=== PATIENT | female | born 1975 | race Hispanic/Latino ===

== ENCOUNTER 2025-03-16 21:21 | Emergency (ER) | payer OTHER ==
--- OUTSIDE RECORDS SUMMARY | 2025-03-16 21:28 | XMS REPORT | Continuity of Care Document ---
Author Name Unknown Address [address] [place] [address] [facility] Address [address] [place] [address] Care Team Providers Care Community Engagement Coordinator Name Role Phone Pcp, Patient Does Not Have A Primary Care Physic ronald DEEDEE MORIN Attending Clinician Unavailable BESS CARRASCO Attending Clinician Unavailable ARLYN CRAWFORD Attending Clinician Unavailab LESVIA Sibley Attending Clinician Unavaila ble LAB90 Attending Clinician Unavailable KRUPA CONNELL Attending Clinician Unavailable LESVIA MORALES Attending Clinician UnavailMATTHEW Wei Attending Clinician Unavailable MD TOÑO Attending Clinician Unavailab KURT Ochoa Attending Clinician Unavaila SRIDHAR Nance Attending Clinician Unavailable Campaigns, Generic Provider Attending Clinician Unavailable TAMMIE CABRALES Attending Clinician Sandra BRIANA Girard Attending Clinician Unavailable BRIANA HENRY Attending Clinician Unavailable MAC, EKG- Attending Clinician Unavailable ERVIN COOK Attending Clinician Unavailable ALBA CAMPBELL Attending Clinician Unavailable JACE JUSTICE Attending Clinician Unavail able AMBER TREVINO Attending Clinician Unavailable Amber Trevino MD Attending Clinician [phone] Kimberly Diaz RN Attending Clinician [phone] Antonella Delgado Attending Clinician [phone] Teodoro Lincoln MD Attending Clinician [phone] Nacho Benavides Attending Clinician [phone] Jonathan BANKS, Lauren Lynch Attending Clinician UnavailJORGE Rivas Attending Clinician Unavailable DAVON [place] M.D. Attending Clinic ronald Unavailable BRIANA HENRY Admitting Clinician Unavailable AMBER TREVINO Admitting Clinician Unavailable Teodoro Lincoln MD Admitting Clinician [phone] Payers Payer Name Policy Type Policy Number Effective Date Expirati on Date Source MEDICAID ALIEN PENDING PENDING 2020 00:00:00 [place]IL[place] 5 [facility] 94 [id number] 2024 00:00:00 COMMERCIAL NON-CONTRACT GENERIC [id number] 2014 00:00:00 [facility] [id number] 2017 00:00:00 Problems Condition Name Condition Details Condition Category Status Onset Date Resolution Date Last Treatment Date Treating Clinician Comments Source Immunodefi ciency due to poorly controlled type 2 diabetes (CMS/HCC) (multi HCC) Immunodefi ciency due to poorly controlled type 2 diabetes (CMS/HCC) (multi HCC) Disease Active 02-14 00:00: 00 Isa galeano DM type 2 with diabetic mixed hyperlipid emia (multi HCC) DM type 2 with diabetic mixed hyperlipid emia (multi HCC) Disease Active 03-19 00:00: 00 Isa galeano Obesity Obesity Disease Active 03-19 00:00: 00 Isa Seybold - Externa l History of uterine cancer History of uterine cancer Disease Active 03-19 00:00: 00 Isa Burgerlidya Harveyeugene galeano Family history of rheumatoid arthritis Family history of rheumatoid arthritis Disease Active 03-19 00:00: 00 Isa Maricruz Harveya l Arthralgia of both hands Arthralgia of both hands Disease Active 03-19 00:00: 00 Isa Maricruz Harvey[place] Diabetic polyneurop athy associated with type 2 diabetes mellitus (multi HCC) Diabetic polyneurop athy associated with type 2 diabetes mellitus (multi HCC) Disease Active 03-19 00:00: 00 Isa Maricruz Harvey[place] COVID-19 COVID-19 Disease Active 2019-11 0 00:00: 00 [facility] Pneumonia due to COVID-19 virus Pneumonia due to COVID-19 virus Disease Active 2019-11 00:00: 00 [facility] C54.1 - MALIGNANT NEOPLASM OF ENDOMETR C54.1 - MALIGNANT NEOPLASM OF ENDOMETR Active 06/09/2018 BRENNAN Aragon Diagnosis Active 06-09 00:01: 00 2018-07-12 15:22:00 Bud Hernandez Obesity (BMI 30-39.9) Obesity (BMI 30-39.9) Disease Active 01-11 00:00: 00 [facility] Abnormal uterine bleeding Abnormal uterine bleeding Disease Active 01-11 00:00: 00 [facility] DM type 2 (diabetes mellitus, type 2) DM type 2 (diabetes mellitus, type 2) Disease Active 01-11 00:00: 00 [facility] Endometria l hyperplasi a without atypia, complex Endometria l hyperplasi a without atypia, complex Disease Active 01-11 00:00: 00 [facility] Chronic pelvic pain in female Chronic pelvic pain in female Disease Active 01-11 00:00: 00 [facility] S/P YOCASTA-BSO S/P YOCASTA-BSO Disease Active 01-11 00:00: 00 [facility] VAGINAL BLEEDING VAGINAL BLEEDING Active 11/22/2016 [facility] Diagnosis Active 11-22 00:00: 00 2017-01-07 14:24:00 [facility] UNK UNK Active 02/10/2016 [facility] Diagnosis Active 02-09 00:00: 00 2016-05-11 18:15:00 [facility] [place] [facility] Constipati on (disorder) Constipati on (disorder) Active 06/06/2015 Problem 06/26/2019 Data migrated from [facility] on 07/06/15. [facility] Active 06-06 00:00: 00 2019-06-26 12:29:50 [facility] Idiopathic atrophic hypothyroi dism (disorder) Idiopathic atrophic hypothyroi dism (disorder) Active Problem 06/26/2019 Medical Group, BRENNAN Aragon Problem Active 2019-06-26 12:29:50 [facility] Morbid obesity (disorder) Morbid obesity (disorder) Active Problem 06/26/2019 [facility] Active 2019-06-26 12:29:50 Mem[facility] l Warrior Pain (finding) Pain (finding) Active Problem 11/25/2016 Maury Aragon [facility] Problem Active 2016-11-25 01:36:07 Memoria l Warrior LUMBAGO LUMBAGO Active [facility] Diagnosis Active 2015-07-11 08:45:00 Memoria l David History of type 2 diabetes mellitus History of type 2 diabetes mellitus Problem HL7.CCDAR2 [facility] Problem HL7.CCDAR2 [facility] Endometria l carcinoma Endometria l carcinoma Problem HL7.CCDAR2 Active [facility] Anemia (disorder) Anemia (disorder) Resolved Problem 06/26/2019 [facility], Maury Aragon Problem Resolve d 2019-06-26 12:29:50 [facility] l [facility] Depressive disorder (disorder) Depressive disorder (disorder) Resolved Problem 06/26/2019 [facility], Maury Aragon Problem Resolve d 2019-06-26 12:29:50 [facility] Hyperchole sterolemia (disorder) Hyperchole sterolemia (disorder) Resolved Problem 06/26/2019 Medical Group, MargoMaury Sylvester Aragon,M [facility] Problem Resolve d 2019-06-26 12:29:50 [facility] [place] Hernandez Hypothyroi dism (disorder) Hypothyroi dism (disorder) Resolved Problem 06/26/2019 Medical [facility], Keno Sylvester Aragon,M [facility] Problem Resolve d 2019-06-26 12:29:50 [facility] [place] Hernandez Menorrhagi a (finding) Menorrhagi a (finding) Resolved Problem 06/26/2019 [facility], Margo Sylvester Aragon Problem Resolve d 2019-06-26 12:29:50 Memoria [place] Hernandez Seasonal allergic rhinitis (disorder) Seasonal allergic rhinitis (disorder) Resolved Problem 06/26/2019 [facility] Problem Resolve d 2019-06-26 12:29:50 Memoria [place] Hernandez Disease of thyroid gland (disorder) Disease of thyroid gland (disorder) Resolved Problem 06/26/2019 [facility], Keno Sylvester Aragon,[facility] Problem Resolve d 2019-06-26 12:29:50 Memapoorva Hernandez History of malignant neoplasm of uterine body (situation ) History of malignant neoplasm of uterine body (situation ) Active [facility]26[facility]2019 [facility] Problem Active 2019-06-26 12:29:50 Bud Hernandez Excessive and frequent menstruati on (finding) Excessive and frequent menstruati on (finding) Resolved 06/06/2015 Problem 06/26/2019 Data migrated from [email or web address] on 07/06/15. Medical Group, Margo Sylvester Aragon,[facility] Problem Resolve d 06-06 00:00: 00 2019-06-26 12:29:50 2019-06-26 12:29:50 Memapoorva Hernandez Right lower quadrant pain (finding) Right lower quadrant pain (finding) Resolved 06/06/2015 Problem 06/26/2019 Data migrated from [email or web address] on 07/06/15. Medical Group,Maury Montilla [facility] Problem Resolve d 06-06 00:00: 00 2019-06-26 12:29:50 2019-06-26 12:29:50 Bud Hernandez History of Past Illness Condition Name Condition Details Condition Category Status Onset Date Resolution Date Last Treatment Date Treating Clinician Comments Source Discharge Diagnosis: Menorrhagi a Discharge Diagnosis: Menorrhagi a 11/22/2016 11/25/2016 Margo Problem 11-22 06:00: 00 2016-11-25 01:36:07 2016-11-25 01:36:07 Bud Hernandez Allergies, Adverse Reactions, Alerts Allergy Name Allergy Type Status Severity Reaction(s) Onset Date Inactive Date Treating Clinician Comments Source Amoxicil bravo Propensi ty to adverse reaction s Active 03-19 00:00: 00 Isa Ashbyold - Externa l AMOXICIL BRAVO DRUG INGREDI Active Hives 01-10 00:00: 00 [facility] Amoxicil bravo Propensi ty to adverse reaction s Active Hives 01-10 00:00: 00 [facility] Penicill ins Propensi ty to adverse reaction s Active Hives 12-06 00:00: 00 Data migrated from [employer] on 07/06/15. Originall y documente d as PCN. ALLERGY Isa Ashbyold - Externa l PENICILL INS Drug Class Active Hives 12-06 00:00: 00 [facility] Penicill ins Propensi ty to adverse reaction s Active Hives 12-06 00:00: 00 [facility] Penicill ins Propensi ty to adverse reaction s Active Hives 12-06 00:00: 00 [facility] amoxicil bravo<sup> 1</sup> amoxicil bravo<sup> 1</sup> Active 06-06 05:00: 00 Memoria l David penicill ins<sup> 1</sup> penicill ins<sup> 1</sup> Active Memoria l David penicill ins<sup> 2</sup> penicill ins<sup> 2</sup> Active [facility] Social History Social Habit Start Date Stop Date Quantity Comments Source Gender identity Bernice arielle Alcantara - External ASSERTION Not Isa Alcantara - External History of Occupation Isa Alcantara - External History of tobacco use Passive smoker Isa casey - External Sexual orientation [facility] Alcoholic beverage intake 2024-05-14 00:00:00 2024-05-14 00:00:00 Current non-drinker of alcohol (finding) [facility] History of Social function 2024-05-14 00:00:00 2024-05-14 00:00:00 [facility] Tobacco use and exposure 2024-03-16 00:00:00 2024-03-16 00:00:00 Smokeless tobacco non-user Isa Alcantara - External Alcohol intake 2023-03-19 00:00:00 2023-03-19 00:00:00 Ex-drinker (finding) Isa Alcantara - External Education 2023-03-19 00:00:00 2023-03-19 00:00:00 17 Isa Alcantara - External Exposure to SARS-CoV-2 (event) 2022-12-30 00:00:00 2023-01-09 20:29:00 Not sure [facility] Sex 2022-12-03 13:21:49 2022-12-03 13:21:49 Female (finding) Isa Alcantara - External Sex assigned at 1975 00:00:00 1975 00:00:00 Isa Alcantara - External Smoking Status Start Date Stop Date Source Never smoked tobacco Isa Alcantara - External Medications Ordered Medication Name Filled Medication Name Start Date Stop Date Current Medication? Ordering Clinician Indication Dosage Frequency Signature (SIG) Comments Components Source Trulicity 1.5 MG/0.5ML subcutaneou s Solution Auto-inject or 03-14 00:00: 00 Yes [id number] 3 1.5mg Q1W Inject 1.5 mg into the skin once a week. Isa Alcnatara - Externa l Ondansetron (ZOFRAN) 4 MG oral TABLET DISPERSIBLE 03-14 00:00: 00 Yes [id number] 4mg Q.[id number] 3D Take 1 tablet (4 mg total) by mouth every 8 hours as needed for nausea. Isa galeano Azithromyci n 500 MG oral Tablet 4-30 00:00: 00 Yes [id number] Take 1000 mg on day 1 and then 500 mg for 3 days. Isa galeano Glimepiride 2 MG oral Tablet 4-25 00:00: 00 Yes [id number] 2mg TAKE 1 TABLET (2 MG) BY MOUTH EVERY MORNING BEFORE BREAKFAST Isa galeano Ketorolac Tromethamin e 10 MG oral Tablet 3-26 00:00: 00 Yes [id number] 10mg Q.5D Take 1 tablet (10 mg total) by mouth 2 times daily as needed for pain. Isa galeano hydroCHLORO thiazide 12.5 MG oral Capsule 07-11 00:00: 00 Yes [id number] 12.5mg QD TAKE 1 CAPSULE (12.5 MG TOTAL) BY MOUTH DAILY NEEDED (SWELLING) . Isa galeano Trulicity 0.75 MG/0.5ML subcutaneou s Solution Pen-injecto r 06-12 00:00: 00 Yes [id number] 3 INJECT 0.75 MG SUBCUTANEO USLY ONE TIME PER WEEK Isa galeano hydroCHLORO thiazide 12.5 MG oral Capsule 06-12 00:00: 00 Yes [id number] 12.5mg QD TAKE 1 CAPSULE (12.5 MG TOTAL) BY MOUTH DAILY NEEDED (SWELLING) . Isa galeano Moxifloxaci n HCl 0.5 % ophthalmic Solution 05-19 00:00: 00 Yes [id number] 9108 1[drp] Q.25D Place 1 drop into the right eye 4 times daily. Isa galeano prednisoLON E Acetate 1 % ophthalmic Suspension 05-19 00:00: 00 Yes [id number] 9108 1[drp] Q.25D Place 1 drop into the right eye 4 times daily. Isa Seybold - Externa l KETOROLAC TROMETHAMIN E, OPHTH, 0.5 % ophthalmic Solution 05 00:00: 00 Yes [id number] 9108 1[drp] Q.25D Place 1 drop into the right eye 4 times daily. Isa Del Angel Externa l HYDROcodone -acetaminop hen (NORCO 5) 5-325 mg tablet 1 tablet 05-14 16:15: 05-14 16:12 :00 No 1{tbl} 1 tablet, Oral, ONCE, 1 dose, On 05/14/24 at 1115, PRINCE [facility] ibuprofen (IBU) tablet 600 mg 05-14 16:15: 05-14 16:12 :00 No 600mg 600 mg, Oral, ONCE, 1 dose, On 05/14/24 at 1115, PRINCE [facility] hydroCHLORO thiazide 12.5 MG oral Capsule 05-11 00:00: 00 Yes [id number] 12.5mg QD TAKE 1 CAPSULE (12.5 MG TOTAL) BY MOUTH DAILY NEEDED (SWELLING) . Isa galeano Trulicity 0.75 MG/0.5ML subcutaneou s Solution Pen-injecto r 05-10 00:00: 00 Yes [id number] 3 INJECT 0.75 MG SUBCUTANEO USLY ONE TIME PER WEEK Isa galeano Phentermine HCl 15 MG oral Capsule 05-02 00:00: 00 Yes [id number] 15mg Take 1 capsule (15 mg total) by mouth every morning. Isa galeano Gabapentin 100 MG oral Capsule 04-17 00:00: 00 Yes [id number] 100mg Q.5D TAKE 1 CAPSULE (100 MG TOTAL) BY MOUTH 2 TIMES DAILY NEEDED (NEUROPATH Y) Isa Harveya l Trulicity 0.75 MG/0.5ML subcutaneou s Solution Pen-injecto r 04-13 00:00: 00 Yes [id number] 3 INJECT 0.75 MG SUBCUTANEO USLY ONE TIME PER WEEK Isa galeano hydroCHLORO thiazide 12.5 MG oral Capsule 03-16 00:00: 00 Yes [id number] 12.5mg QD Take 1 capsule (12.5 mg total) by mouth daily as needed (swelling) . Isa galeano Ketorolac Tromethamin e 10 MG oral Tablet 03-16 00:00: 00 Yes [id number] 10mg Q.5D Take 1 tablet (10 mg total) by mouth 2 times daily. Isa galeano Atorvastati n Calcium 10 MG oral Tablet 03-16 00:00: 00 Yes [id number] 3 10mg QD Take 1 tablet (10 mg total) by mouth daily. Isa galeano Trulicity 0.75 MG/0.5ML subcutaneou s Solution Pen-injecto r 03-16 00:00: 00 Yes [id number] 3 .75mg Inject 0.75 mg into the skin once a week. Isa galeano Phentermine HCl 15 MG oral Capsule 03-16 00:00: 00 Yes [id number] 15mg Take 1 capsule (15 mg total) by mouth every morning. Isa galeano Fenofibrate 48 MG oral Tablet 4-30 00:00: 00 Yes [id number] 3 48mg QD Take 1 tablet (48 mg total) by mouth daily. Isa galeano Cyclobenzap rine HCl 10 MG oral Tablet 3-10 00:00: 00 03-16 00:00 :00 No 10mg Take 1 tablet (10 mg total) by mouth every 8 hours. Isa galeano Ketorolac Tromethamin e 10 MG oral Tablet -10 00:00: 00 03-16 00:00 :00 No 10mg Take 1 tablet (10 mg total) by mouth 2 times daily. Isa galeano Naproxen 500 MG oral Tablet -05 00:00: 00 03-16 00:00 :00 No 500mg Take 1 tablet (500 mg total) by mouth in the morning and 1 tablet (500 mg total) in the evening. Take with meals. Isa galeano Dulaglutide (Trulicity) 1.5 MG/0.5ML subcutaneou s Solution Pen-injecto r 1-17 00:00: 00 03-16 00:00 :00 No [id number] 3 1.5mg Inject 1.5 mg into the skin once a week. Isa galeano Metformin HCl ER 500 MG oral TABLET SR 24 HR 03-19 09:06: 56 03-16 00:00 :00 No 500mg Take 1 tablet (500 mg total) by mouth daily (with breakfast) Isa galeano Semaglutide (OZEMPIC, 1 MG/DOSE, SC) 03-19 09:05: 50 03-19 00:00 :00 No 1mg Inject 1 mg into the skin once a week Isa galeano Atorvastati n Calcium 10 MG oral Tablet 03-19 08:49: 51 03-16 00:00 :00 No 10mg Take 1 tablet (10 mg total) by mouth daily Isa galeano Sitagliptin -Metformin HCl 50-1000 MG oral Tablet 03-19 08:48: 10 03-19 00:00 :00 No 1{tbl} Take 1 tablet by mouth daily Isa galeano Trulicity 1.5 MG/0.5ML subcutaneou s Solution Pen-injecto r 03-19 00:00: 00 Yes [id number] 3 1.5mg Inject 1.5 mg into the skin once a week Isa galeano Gabapentin 100 MG oral Capsule 03-19 00:00: 00 Yes [id number] 100mg Q.5D Take 1 capsule (100 mg total) by mouth 2 times daily as needed (Neuropath y) Isa galeano ergocalcife rol, vitamin d2, 1,250 mcg (50,000 unit) capsule 2019-11 0 00:00: 00 Yes [id number] 92487R Take 1 capsule by mouth weekly. [facility] ascorbic acid, vitamin C, 1,000 mg tablet 2019-11 00:00: 00 Yes [id number] 1000mg Take 1 tablet by mouth daily. [facility] sitagliptan -metformin (NOVUMET) 50-1,000 mg per tablet 2019-11 21:29: 51 Yes 1{tbl} Take 1 tablet by mouth daily. [facility] atorvastati n 10 mg tablet 2019-11 21:29: 51 Yes 10mg Take 10 mg by mouth at bedtime. [facility] sitagliptan -metformin (NOVUMET) 50-1,000 mg per tablet 2019-11 16:29: 51 Yes 1{tbl} Take 1 tablet by mouth daily. [facility] atorvastati n 10 mg tablet 2019-11 16:29: 51 Yes 10mg Take 10 mg by mouth at bedtime. [facility] zinc sulfate 220 (50) mg capsule 2019-11 00:00: 00 Yes [id number] 220mg Take 1 capsule by mouth 2 (two) times daily. [facility] lactobacill us acidophilus 25 million cell -100 mg captab 2019-11 00:00: 00 Yes [id number] 1{tbl} Take 1 tablet by mouth 2 (two) times daily. [facility] aspirin 81 mg chewable tablet 2019-11 00:00: 00 Yes [id number] 81mg Take 1 tablet by mouth daily. [facility] dexAMETHaso ne 6 mg tablet 2019-11 00:00: 00 Yes [id number] 6mg Take 1 tablet by mouth daily with breakfast. [facility] levoFLOXaci n 750 mg tablet 2019-11 00:00: 00 Yes [id number] 750mg Take 1 tablet by mouth every 24 (twenty-fo ur) hours. [facility] Sliding Scale Insulin - Aspart (NOVOLOG) + Fsbg Testing 2019-11 21:30: 00 Yes Subcutaneo us, AC+HS, First dose (after last modificati on) on 08/31/20 at 1630, Until Discontinu ed, Routine [facility] dexamethaso ne (DECADRON) 6 mg in NaCl 0.9% (NS) piggyback 2019-11 14:00: 00 Yes 6mg 6 mg, IV Piggyback, DAILY, First dose (after last modificati on) on Wed08/31/20 at 0900, Until Discontinu ed, 50 mL [facility] insulin NPH (HUMULIN N) injection 20 Units 2019-11 16:30: 00 Yes 20U 20 Units, Subcutaneo us, QAM+HS, First dose on Wed08/30/20 at 1130, Until Discontinu ed, Routine [facility] Sliding Scale Insulin - Aspart (NOVOLOG) + Fsbg Testing 2019-11 16:30: 00 08-31 19:47 :01 No Subcutaneo us, AC+HS, First dose (after last modificati on) on Wed08/30/20 at 1130, Until Discontinu ed, Routine [facility] ergocalcife rol (vitamin d2) (CALCIFEROL ) capsule 50,000 Units 2019-11 14:00: 00 Yes [id number] 50,000 Units, Oral, QWEEKLY, First dose on Wed08/30/20 at 0900, Until Discontinu ed, Routine [facility] lactobacill us acidophilus (ACIDOPHILL US) 25 million cell -100 mg captab 1 tablet 2019-11 14:00: 00 Yes 1{tbl} 1 tablet, Oral, DAILY, First dose on Wed08/30/20 at 0900, Until Discontinu ed, Routine [facility] ascorbic acid (vitamin C) (VITAMIN C) tablet 1,000 mg 2019-11 14:00: 00 Yes 1000mg 1,000 mg, Oral, DAILY, First dose on Wed08/30/20 at 0900, Until Discontinu ed, Routine [facility] zinc sulfate (ORAZINC) capsule 220 mg 2019-11 13:45: 00 Yes 220mg 220 mg, Oral, BID, First dose (after last modificati on) on Wed08/30/20 at 0845, Until Discontinu ed, Routine [facility] enoxaparin (LOVENOX) injection 80 mg 2019-11 13:45: 00 Yes 1mg/kg 80 mg (rounded from 77 mg = 1 mg/kg ?77 kg), Subcutaneo us, Q12H, First dose (after last modificati on) on Wed08/30/20 at 0845, Until Discontinu ed, Routine [facility] zolpidem (AMBIEN) tablet 5 mg 2019-11 02:22: 08 Yes 5mg 5 mg, Oral, QHSPRN, Starting Wed08/29/20 at 2121, Until Discontinu ed, Routine, Insomnia [facility] codeine-gua ifenesin (ROBITUSSIN AC) 10-100 mg/5 mL solution 5 mL 2019-11 02:21: 34 Yes 5mL 5 mL, Oral, Q6HPRN, Starting Wed08/29/20 at 2120, Until Discontinu ed, Routine, Cough [facility] atorvastati n (LIPITOR) tablet 10 mg 2019-11 02:00: 00 Yes 10mg 10 mg, Oral, QHS, First dose on Wed08/29/20 at 2100, Until Discontinu ed, Routine Univers [facility] Sliding Scale Insulin - Aspart (NOVOLOG) + Fsbg Testing 2019-11 02:00: 00 08-30 16:18 :35 No Subcutaneo us, TID MEALS+HS, First dose on Wed08/29/20 at 2100, Until Discontinu ed, Routine [facility] levoFLOXaci n in D5W (LEVAQUIN) 750 mg/150 mL Piggyback 750 mg 2019-11 01:00: 00 Yes 750mg 750 mg, IV Piggyback, Administer over 90 Minutes, Q24H ABX, First dose on Wed08/29/20 at 2000, Until Discontinu ed, PRINCE
Re ason for Anti-Infec tive: Documented Infection< br>Documen troy Infection Site: Respirator y
Durat ion of Therapy: 7 days [facility] ibuprofen (IBU) tablet 600 mg 2019-11 23:41: 45 Yes 600mg 600 mg, Oral, Q6HPRN, Starting Shellie 08/29/20 at 1841, Until Discontinu ed, Routine, Temp > 38.5 C [facility] albuterol (VENTOLIN) inhaler 2 Puff 2019-11 23:39: 25 Yes 2{puff} 2 Puff, Inhalation , Q4HPRN, Starting Shellie 08/29/20 at 1839, Until Discontinu ed, Routine, Wheezing, Shortness of Breath
Is this order for a patient with suspected or confirmed COVID-19 infection? Yes [facility] ipratropium (ATROVENT HFA) inhaler 2 Puff 2019-11 22:37: 31 Yes 2{puff} 2 Puff, Inhalation , Q6HPRN, Starting Shellie 08/29/20 at 1737, Until Discontinu ed, Routine, Shortness of Breath, Wheezing, Bronchospa sm, Chest tightness< br>Is this order for a patient with suspected or confirmed COVID-19 infection? Yes [facility] proCHLORper azine (COMPAZINE) injection 10 mg 2019-11 22:35: 58 Yes 10mg 10 mg, Slow IV Push, Q6HPRN, Starting Shellie 08/29/20 at 1735, Until Discontinu ed, Routine, Nausea and Vomiting (N/V) [facility] HYDROcodone -acetaminop hen (NORCO) 10-325 mg tablet 1 tablet 2019-11 22:35: 52 Yes 1{tbl} 1 tablet, Oral, Q6HPRN, Starting Shellie 08/29/20 at 1735, Until Discontinu ed, Routine, Pain (scale 7-10) [facility] acetaminoph en (TYLENOL) tablet 650 mg 2019-11 22:35: 18 Yes 650mg 650 mg, Oral, Q6HPRN, Starting Shellie 08/29/20 at 1735, Until Discontinu ed, Routine, Pain (scale 1-3) [facility] iohexol (OMNIPAQUE 350 BULK-100 mL) injection 76 mL 2019-11 19:48: 00 08-29 20:00 :00 No 76mL 76 mL, Intravenou s, ONCE, 1 dose, Shellie 08/29/20 at 1500, Routine [facility] ketorolac (TORADOL) injection 30 mg 2019-11 19:15: 00 08-29 18:35 :00 No 30mg 30 mg, Slow IV Push, ONCE, 1 dose, Shellie 08/29/20 at 1415, PRINCE
Fa culty member approving Restricted medication : Antonella CABELLO [facility] methylpredn isolone sod succ (SOLU-MEDRO L) injection 125 mg 2019-11 18:15: 00 08-29 18:33 :00 No 125mg 125 mg, Intravenou s, ONCE, 1 dose, Shellie 08/29/20 at 1315, STAT [facility] azithromyci n (ZITHROMAX) tablet 500 mg 2019-11 02:15: 00 08-26 01:33 :00 No 500mg 500 mg, Oral, ONCE, 1 dose, 08/25/20 at 2115, PRINCE
Re ason for Anti-Infec tive: Documented Infection< br>Documen troy Infection Site: COVID
D uration of Therapy: Other (see Comments) [facility] codeine-gua ifenesin (ROBITUSSIN AC) 10-100 mg/5 mL solution 10 mL 2019-11 02:00: 00 08-26 00:55 :00 No 10mL 10 mL, Oral, ONCE, 1 dose, 08/25/20 at 2100, [facility] NaCl 0.9% (NS) bolus infusion 1,000 mL 2019-11 01:45: 00 08-26 01:00 :00 No 1000mL at 999 mL/hr, 1,000 mL, IV Infusion, ONCE, 1 dose, 08/25/20 at 2045, STAT [facility] methylpredn isolone sod succ (SOLU-MEDRO L) injection 125 mg 2019-11 01:45: 00 08-26 00:55 :00 No 125mg 125 mg, IV Piggyback, ONCE, 1 dose, 08/25/20 at 2044, STAT [facility] ibuprofen (IBU) tablet 800 mg 2019-11 01:45: 00 08-26 00:56 :00 No 800mg 800 mg, Oral, ONCE, 1 dose, 08/25/20 at 2044, [facility] acetaminoph en (TYLENOL) tablet 1,000 mg 2019-11 01:45: 00 08-26 00:55 :00 No 1000mg 1,000 mg, Oral, ONCE, 1 dose, Darragh 08/25/20 at 2044, [facility] azithromyci n 250 mg tablet 2019-11 00:00: 00 08-31 04:59 :00 No [id number] 250mg Take 1 tablet by mouth daily for 4 days. Take 500 mg day 1, then 250 mg days 2 to 5. [facility] albuterol 90 mcg/actuati on inhaler 2019-11 00:00: 00 Yes [id number] 2{puff} Inhale 2 Puffs every 4 (four) hours as needed for Wheezing or Shortness of Breath. [facility] methylPREDN ISolone 4 mg tablets 2019-11 00:00: 00 Yes [id number] Take by mouth SEE-INSTRU CTIONS. follow package directions [facility] codeine-gua ifenesin 10-100 mg/5 mL solution 2019-11 00:00: 00 09-02 04:59 :00 No 5mL Take 5 mL by mouth every 6 (six) hours as needed for Cough for up to 7 days. Indication s: cough [facility] 24 HR empaglifloz in 12.5 MG / Metformin hydrochlori de 1000 MG Extended Release Oral Tablet [Synjardy] 12-11 23:04: 00 Yes 2 tab, PO, Dinner, for diabetes, # 180 tab, 1 Refill(s), Pharmacy: [id number] Bud Hernandez 3 ML liraglutide 6 MG/ML Prefilled Syringe [Victoza] 12-06 15:46: 00 Yes See Instructio ns, 0.6 mg SQ Daily x 2 weeks, then 1.2 mg SQ daily x 2 weeks, then 1.8 mg SQ daily for sugars and weight loss, # 3 pen(s), 5 Refill(s), Pharmacy: [facility] #[id number], ukrainian label Jeremyapoorva Hernandez ciprofloxac in 500 mg oral tablet 12-06 15:46: 00 No 500 mg = 1 tab, PO, Q12H, for Urine infection, X 3 day, # 6 tab, 0 Refill(s), Pharmacy: [facility] #[id number], ukrainian label Jeremyapoorva galeano David BD Ultra-Fine Marita Insulin Pen Mumford 32G 4mm=5/32 inch 12-06 15:46: 00 Yes 1 ea, MISC, Daily, for use with victoza, # 100 ea, 3 Refill(s), Pharmacy: [id number] Jeremyapoorva galeano Warrior lisinopril 5 mg oral tablet 12-06 15:46: 00 Yes 5 mg = 1 tab, PO, Bedtime, to protect kidneys, # 90 tab, 3 Refill(s), Pharmacy: [id number], ukrainian label Bud Hernandez Fluconazole 150 MG Oral Tablet Fluconazole 150 MG Oral Tablet 06-02 00:00: 00 Yes DAVON VIEIRA M.D. TAKE 1 TABLET 1 TIME ONLY. [facility] sitagliptan -metformin (JANUMET) 50-1,000 mg per tablet 01-13 18:15: 22 Yes 1{tbl} Take 1 tablet by mouth daily. [facility] atorvastati n 10 mg tablet 01-13 18:15: 22 Yes 10mg Take 10 mg by mouth at bedtime. [facility] ibuprofen 800 mg tablet 01-13 00:00: 00 Yes 800mg Take 1 tablet by mouth every 8 (eight) hours as needed for Pain (scale 1-3). [facility] HYDROcodone -acetaminop hen (NORCO) 10-325 mg tablet 01-13 00:00: 00 Yes 1{tbl} Take 1 tablet by mouth every 6 (six) hours as needed for Pain (scale 1-3), Pain (scale 4-6) or Pain (scale 7-10). 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 Progesteron e CAPS Progesteron e CAPS Yes [facility] Atorvastati n Calcium TABS Atorvastati n Calcium TABS Yes [facility] Immunizations Ordered Immunization Name Filled Immunization Name Date Status Comments Source Influenza, Seasonal, Injectable 2020-08-04 00:00:00 Completed Isa Chatman Influenza Virus Vaccine - Whole 2020-08-04 00:00:00 Completed [facility] Influenza Virus Vaccine - Whole 2020-08-04 00:00:00 Completed [facility] Influenza Virus Vaccine - Whole 2020-08-04 00:00:00 Completed [facility] Influenza Virus Vaccine - Whole 2020-08-04 00:00:00 Completed [facility] pneumococcal 23-valent vaccine Unknown Completed [facility] pneumococcal 23-valent vaccine Unknown Completed [facility] pneumococcal 23-valent vaccine Unknown Completed [facility] pneumococcal 23-valent vaccine Unknown Completed [facility] Influenza, Seasonal, Injectable Unknown Completed Isa Seybold - External Pneumococcal Vaccine, Polysaccharide Unknown Completed Isa Seybol d - External Influenza, Seasonal, Injectable Unknown Completed Isa Seybold - External Pneumococcal Vaccine, Polysaccharide Unknown Completed Isa Seybol d - External Influenza, Seasonal, Injectable Unknown Completed Isa Seybold - External Pneumococcal Vaccine, Polysaccharide Unknown Completed Isa Seybol d - External Influenza, Seasonal, Injectable Unknown Completed Isa Seybold - External Pneumococcal Vaccine, Polysaccharide Unknown Completed Isa Seybol d - External Influenza, Seasonal, Injectable Unknown Completed Isa Seybold - External Pneumococcal Vaccine, Polysaccharide Unknown Completed Isa Seybol d - External AFLURIA TRIVALENT MDV Unknown Completed Isa Seybold - External Pneumococcal Vaccine, Polysaccharide Unknown Completed Isa Seybol d - External Influenza, Seasonal, Injectable Unknown Completed Isa Seybold - External Pneumococcal Vaccine, Polysaccharide Unknown Completed Isa Seybol d - External Influenza Virus Vaccine - Whole Unknown Completed [facility] Influenza Virus Vaccine - Whole Unknown Completed [facility] Vital Signs Vital Name Observation Time Observation Value Comments S ource Body height 2024-05-17 15:48:00 152.4 cm Isa Alcantara - External Body weight 2024-05-17 15:48:00 83.462 kg Isa Alcantara - External BMI 2024-05-17 15:48:00 35.94 kg/m2 Isa Ashbyold - External Systolic blood pressure 2024-05-14 18:13:00 144 mm[Hg] [facility] Diastolic blood pressure 2024-05-14 18:13:00 70 mm[Hg] [facility] Heart rate 2024-05-14 18:13:00 80 /min [facility] Respiratory rate 2024-05-14 18:13:00 20 /min [facility] Oxygen saturation in Arterial blood by Pulse oximetry 2024-05-14 18:13:00 100 /min [facility] Body temperature 2024-05-14 16:08:00 36.61 Sendy [facility] Body height 2024-05-14 16:08:00 152.4 cm [facility] Body weight 2024-05-14 16:08:00 83.462 kg [facility] BMI 2024-05-14 16:08:00 35.94 kg/m2 [facility] Systolic blood pressure 2024-03-16 18:44:00 118 mm[Hg] Isa Seybold - External Diastolic blood pressure 2024-03-16 18:44:00 64 mm[Hg] Isa Seybold - External Heart rate 2024-03-16 18:44:00 86 /min Isa Seybold - External Body temperature 2024-03-16 18:44:00 36.56 Sendy Isa Seybold - External Respiratory rate 2024-03-16 18:44:00 15 /min Isa Seybold - External Body height 2024-03-16 18:44:00 152.4 cm Isa Seybold - External Body weight 2024-03-16 18:44:00 85.276 kg Isa Seybold - External BMI 2024-03-16 18:44:00 36.72 kg/m2 Isa Seybold - External Systolic blood pressure 2023-03-19 14:03:00 120 mm[Hg] Isa Seybold - External Diastolic blood pressure 2023-03-19 14:03:00 70 mm[Hg] Isa Seybold - External Heart rate 2023-03-19 13:45:00 84 /min Isa Seybold - External Body temperature 2023-03-19 13:45:00 36.89 Sendy Isa Seybold - External Respiratory rate 2023-03-19 13:45:00 19 /min Isa Seybold - External Body height 2023-03-19 13:45:00 152.4 cm Isa Seybold - External Body weight 2023-03-19 13:45:00 86.183 kg Isa Seybold - External BMI 2023-03-19 13:45:00 37.11 kg/m2 Isa Seybold - External Oxygen saturation in Arterial blood by Pulse oximetry 2023-03-19 13:45:00 98 /min Isa Seybold - External Systolic blood pressure 2023-01-10 02:31:00 130 mm[Hg] [facility] Diastolic blood pressure 2023-01-10 02:31:00 90 mm[Hg] [facility] Heart rate 2023-01-10 02:31:00 97 /min [facility] Body temperature 2023-01-10 02:31:00 37.22 Sendy [facility] Respiratory rate 2023-01-10 02:31:00 20 /min [facility] Body height 2023-01-10 02:31:00 152.4 cm [facility] Body weight 2023-01-10 02:31:00 85.276 kg [facility] BMI 2023-01-10 02:31:00 36.72 kg/m2 [facility] Oxygen saturation in Arterial blood by Pulse oximetry 2023-01-10 02:31:00 100 /min [facility] Systolic blood pressure 2020-09-01 21:00:00 121 mm[Hg] [facility] Diastolic blood pressure 2020-09-01 21:00:00 91 mm[Hg] [facility] Heart rate 2020-09-01 21:00:00 85 /min [facility] Respiratory rate 2020-09-01 21:00:00 31 /min [facility] Oxygen saturation in Arterial blood by Pulse oximetry 2020-09-01 21:00:00 93 /min [facility] Body temperature 2020-09-01 17:00:00 35.72 Sendy [facility] Body weight 2020-09-01 09:00:00 77.52 kg [facility] BMI 2020-09-01 09:00:00 33.38 kg/m2 [facility] Systolic blood pressure 2020-09-01 21:00:00 121 mm[Hg] [facility] Diastolic blood pressure 2020-09-01 21:00:00 91 mm[Hg] [facility] Heart rate 2020-09-01 21:00:00 85 /min [facility] Respiratory rate 2020-09-01 21:00:00 31 /min [facility] Oxygen saturation in Arterial blood by Pulse oximetry 2020-09-01 21:00:00 93 /min [facility] Body temperature 2020-09-01 17:00:00 35.72 Sendy [facility] Body weight 2020-09-01 09:00:00 77.52 kg [facility] BMI 2020-09-01 09:00:00 33.38 kg/m2 [facility] Systolic blood pressure 2020-08-26 03:15:00 118 mm[Hg] [facility] Diastolic blood pressure 2020-08-26 03:15:00 75 mm[Hg] [facility] Heart rate 2020-08-26 03:15:00 85 /min [facility] Respiratory rate 2020-08-26 03:15:00 25 /min [facility] Oxygen saturation in Arterial blood by Pulse oximetry 2020-08-26 03:15:00 97 /min [facility] Body temperature 2020-08-26 02:46:39 38.06 Sendy [facility] Body height 2020-08-26 00:31:00 152.4 cm [facility] Body weight 2020-08-26 00:31:00 79.379 kg [facility] BMI 2020-08-26 00:31:00 34.18 kg/m2 [facility] Systolic blood pressure 2020-08-26 03:15:00 118 mm[Hg] [facility] Diastolic blood pressure 2020-08-26 03:15:00 75 mm[Hg] [facility] Heart rate 2020-08-26 03:15:00 85 /min [facility] Respiratory rate 2020-08-26 03:15:00 25 /min [facility] Oxygen saturation in Arterial blood by Pulse oximetry 2020-08-26 03:15:00 97 /min [facility] Body temperature 2020-08-26 02:46:39 38.06 Sendy [facility] Body height 2020-08-26 00:31:00 152.4 cm [facility] Body weight 2020-08-26 00:31:00 79.379 kg [facility] BMI 2020-08-26 00:31:00 34.18 kg/m2 [facility] Height 2018-12-06 15:19:00 152.4 cm [facility] Weight 2018-12-06 15:19:00 [facility] BMI Calculated 2018-12-06 15:19:00 [facility] Temperature Oral (F) 2018-12-06 15:19:00 98.8 F [facility] Heart Rate 2018-12-06 15:19:00 [facility] Systolic (mm Hg) 2018-12-06 15:19:00 [facility] Diastolic (mm Hg) 2018-12-06 15:19:00 [facility] BP Systolic 2018-06-02 09:08:00 137 mm[Hg] Location: RUE; Position: Sitting [facility] BP Diastolic 2018-06-02 09:08:00 84 mm[Hg] Location: RUE; Position: Sitting [facility] Temperature 2018-06-02 09:08:00 97.6 [degF] Method: Oral [facility] Height 2018-06-02 09:08:00 67 [in_us] [facility] Weight 2018-06-02 09:08:00 185 [lb_av] [facility] Body Mass Index Calculated 2018-06-02 09:08:00 28.98 kg/m2 [facility] Heart Rate 2018-06-02 09:08:00 84 /min [facility] BP Systolic 2018-04-21 11:26:00 145 mm[Hg] Location: RUE; Position: Sitting [facility] BP Diastolic 2018-04-21 11:26:00 94 mm[Hg] Location: RUE; Position: Sitting [facility] Height 2018-04-21 11:26:00 60 [in_us] [facility] Weight 2018-04-21 11:26:00 184.5 [lb_av] [facility] Body Mass Index Calculated 2018-04-21 11:26:00 36.03 kg/m2 [facility] Temperature 2018-04-21 11:26:00 97.2 [degF] Method: Tympanic [facility] Heart Rate 2018-04-21 11:26:00 92 /min [facility] Respiration Rate 2018-04-21 11:26:00 16 /min [facility] Systolic (mm Hg) 2016-11-23 01:30:00 [facility] Diastolic (mm Hg) 2016-11-23 01:30:00 [facility] Heart Rate 2016-11-23 01:30:00 [facility] Respitory Rate 2016-11-23 01:30:00 [facility] Weight 2016-11-22 21:36:00 [facility] Height 2016-11-22 21:36:00 152.4 cm [facility] BMI Calculated 2016-11-22 21:36:00 [facility] Temperature Oral (F) 2016-11-22 21:36:00 97.9 F [facility] Respitory Rate 2016-11-22 21:36:00 [facility] Heart Rate 2016-11-22 21:36:00 Mae Hernandez Systolic (mm Hg) 2016-11-22 21:36:00 Mae Hernandez Diastolic (mm Hg) 2016-11-22 21:36:00 Mae Hernandez Procedures Procedure Date / Time Performed Performing Clinician Source ED ORTHOPEDIC INJURY TREATMENT - FRACTURE 2024-05-14 17:34:54 Briana Henry [facility] XR ANKLE <3 VW LEFT 2024-05-14 16:32:19 Briana Henry [facility] XR TIBIA FIBULA 2 VW LEFT 2024-05-14 16:32:19 Briana Henry [facility] CT HEAD WO CONTRAST 2023-01-10 03:00:09 Amber Trevino [facility] CONSENT/REFUSAL FOR DIAGNOSIS AND TREATMENT 2023-01-10 02:20:47 [place]igned, [place] [facility] POCT GLUCOSE (AUTOMATED) 2020-09-01 16:51:00 Teodoro Lincoln [facility] POCT GLUCOSE (AUTOMATED) 2020-09-01 13:30:00 Teodoro Lincoln [facility] BASIC METABOLIC PANEL (NA, K, CL, CO2, GLUCOSE, BUN, CREATININE, CA) 2020-09-01 09:13:00 Marguerite Pitts [facility] CBC WITH DIFF 2020-09-01 09:13:00 Marguerite Pitts [facility] POCT GLUCOSE (AUTOMATED) 2020-08-31 21:32:00 Teodoro Lincoln [facility] POCT GLUCOSE (AUTOMATED) 2020-08-31 17:01:00 Teodoro Lincoln [facility] POCT GLUCOSE (AUTOMATED) 2020-08-31 13:14:00 Teodoro Lincoln [facility] COMP. METABOLIC PANEL ([id number]) 2020-08-31 09:45:00 Teodoro Lincoln [facility] CBC WITH DIFF 2020-08-31 09:45:00 Marguerite Pitts [facility] POCT GLUCOSE (AUTOMATED) 2020-08-30 22:05:00 Teodoro Lincoln [facility] POCT GLUCOSE (AUTOMATED) 2020-08-30 17:15:00 Teodoro Lincoln [facility] POCT GLUCOSE (AUTOMATED) 2020-08-30 13:21:00 Teodoro Lincoln [facility] BASIC METABOLIC PANEL (NA, K, CL, CO2, GLUCOSE, BUN, CREATININE, CA) 2020-08-30 08:57:00 Marguerite Pitts [facility] CBC WITH DIFF 2020-08-30 08:57:00 Marguerite Pitts [facility] POCT GLUCOSE (AUTOMATED) 2020-08-30 00:56:00 Teodoro Lincoln [facility] VITAMIN B12, LEVEL 2020-08-29 23:51:00 Marguerite Pitts [facility] URINALYSIS 2020-08-29 23:51:00 Antonella Cabello [facility] PNEUMOCOCCAL ANTIGEN 2020-08-29 23:51:00 Marguerite Pitts [facility] VITAMIN D, 25-OH 2020-08-29 23:51:00 Marguerite Pitts [facility] PROCALCITONIN 2020-08-29 23:51:00 Marguerite Pitts [facility] POCT GLUCOSE (AUTOMATED) 2020-08-29 22:13:00 Teodoro Lincoln [facility] CT CHEST PULMONARY ANGIOGRAM 2020-08-29 19:50:57 Antonella Cabello [facility] EKG-12 LEAD 2020-08-29 18:39:13 Doctor Unass igned, [place] [facility] COVID-19 (ID NOW RAPID TESTING) 2020-08-29 17:51:00 Antonella Cabello [facility] LAB ONLY COVID INTERPRETATION 2020-08-29 17:51:00 Antonella Cabello [facility] BLOOD CULTURE SCREEN 2020-08-29 17:49:00 Antonella Cabello [facility] MAGNESIUM 2020-08-29 17:49:00 Antonella Cabello [facility] FERRITIN SERUM 2020-08-29 17:49:00 Marguerite Pitts [facility] TROPONIN I 2020-08-29 17:49:00 Antonella Cabello [facility] THYROID STIMULATING HORMONE 2020-08-29 17:49:00 Marguerite Pitts [facility] COMP. METABOLIC PANEL ([id number]) 2020-08-29 17:49:00 Antonella Cabello [facility] CBC WITH DIFF 2020-08-29 17:49:00 Antonella Cabello [facility] GLYCOSYLATED HEMOGLOBIN (A1C) 2020-08-29 17:49:00 Teodoro Lincoln [facility] D-DIMER 2020-08-29 17:49:00 Antonella Cabello [facility] N-TERMINAL PRO-BNP 2020-08-29 17:49:00 Antonella Cabello [facility] LACTIC ACID WHOLE BLOOD 2020-08-29 17:48:00 Antonella Cabello [facility] BLOOD CULTURE SCREEN 2020-08-29 17:35:00 Antonella Cabello [facility] XR CHEST 1 VW 2020-08-29 17:31:08 Antonella Cabello [facility] EKG-12 LEAD 2020-08-29 17:07:31 [facility] NOTICE OF PRIVACY PRACTICES 2020-08-29 16:40:25 Doctor Unassigned, [place] [facility] POCT GLUCOSE (AUTOMATED) 2020-08-26 01:39:00 Sherrie Dwyer [facility] TROPONIN I 2020-08-26 01:02:00 Nacho Dwyer [facility] BASIC METABOLIC PANEL (NA, K, CL, CO2, GLUCOSE, BUN, CREATININE, CA) 2020-08-26 01:02:00 Nacho Dwyer [facility] CBC WITH DIFF 2020-08-26 01:02:00 Nacho Dwyer [facility] XR CHEST 1 VW COVID 2020-08-26 00:56:50 Nacho Dwyer [facility] Genetic Counseling 2018-06-02 00:00:00 [facility] Digital Mammo Screening Phillip [id number] 2018-06-02 00:00:00 [facility] Total abdominal hysterectomy with bilateral salpingo-oophorectomy 2017-12-16 00:00:00 [facility] Hyste[facility] Encoun[facility] Start Date/Time End Date/Time Encounter Type Admission Type Attending [facility] Care Facility Care Department Encounter ID Source 2021-09-12 23:09:48 Emergency [facility] [id number] [facility] 2021-09-12 22:16:37 Emergency [facility] [id number] [facility] 2025-03-22 15:00:00 2025-03-22 15:00:00 Outpatient DEEDEE MORIN [id number] [facility] 2025-03-14 15:00:00 2025-03-14 15:00:00 Outpatient BESS CARRASCO [id number] [facility] 2025-03-14 14:30:00 2025-03-14 14:30:00 Outpatient BESS CARRASCO [id number] [facility] 2025-03-14 00:00:00 2025-03-14 00:00:00 Outpatient ARLYN CRAWFORD [id number] [facility] 2025-03-09 00:00:00 2025-03-09 00:00:00 Outpatient BESS CARRASCO [id number] [facility] 2025-02-26 08:45:00 2025-02-26 08:45:00 Outpatient DEEDEE MORIN [id number] [facility] 2025-02-14 00:00:00 2025-02-14 00:00:00 Outpatient BESS CARRASCO [id number] [facility] 2025-02-14 00:00:00 2025-02-14 00:00:00 Outpatient DEEDEE MORIN [id number] [facility] 2025-02-13 16:30:00 2025-02-13 16:30:00 Outpatient LESVIA MORALSE [id number] [facility] 2025-02-12 16:30:00 2025-02-12 16:30:00 Outpatient LESVIA MORALES [id number] [facility] 2025-02-06 00:00:00 2025-02-06 00:00:00 Outpatient PREZASDEEDEE ISA [facility] [id number] Isa [facility] 2025-02-05 00:00:00 2025-02-05 00:00:00 Outpatient HUNDL BESS [facility]WILL[facility]AMS [id number] Isa [facility] 2025-02-02 08:40:00 2025-02-02 08:40:00 Outpatient LAB90 ISA [facility] [id number] Isa [facility] 2025-02-01 09:10:00 2025-02-01 09:10:00 Outpatient LAB90 ISA [facility]WILL[facility] [id number] Isa [facility] 2025-02-01 00:00:00 2025-02-01 00:00:00 Outpatient PREZASDEEDEE ISA [facility] [id number] Isa [facility] 2025-01-31 00:00:00 2025-01-31 00:00:00 Outpatient PREZASDEEDEE ISA [facility] [id number] [facility] 2024-12-07 00:00:00 2024-12-07 00:00:00 Outpatient PREZASDEEDEE ISA [facility]WILLI[facility] [id number] Isa [facility] 2024-12-01 10:00:00 2024-12-01 10:00:00 Outpatient BECKI, KRUPA MCWILLIAMS [id number] [facility] 2024-11-28 00:00:00 2024-11-28 00:00:00 Outpatient PREZASDEEDEE ISA [facility] [id number] [facility] 2024-11-28 00:00:00 2024-11-28 00:00:00 Outpatient HUNDL, BESS [facility] [id number] [facility] 2024-11-09 00:00:00 2024-11-09 00:00:00 Outpatient HUNDL BESS [facility] [id number] [facility] 2024-09-08 14:40:00 2024-09-08 14:40:00 Outpatient BECKI, KRUPA MCWILLIAMS [id number] [facility] 2024-08-30 00:00:00 2024-08-30 00:00:00 Outpatient HUNDLBESS ISA [facility] [id number] [facility] 2024-08-23 00:00:00 2024-08-23 00:00:00 Outpatient PREZADEEDEE Lynch [facility] [id number] Isa ybadrian 2024-08-09 16:00:00 2024-08-09 16:00:00 Outpatient ANDREWLESVIA ISA [facility] [id number] [facility] 2024-08-04 15:30:00 2024-08-04 15:30:00 Outpatient TIE, MATTHEW [facility] [id number] [facility] 2024-07-11 00:00:00 2024-07-11 00:00:00 Outpatient HUNDL, BESS [facility] [id number] [facility] 2024-07-09 00:00:00 2024-07-09 00:00:00 Outpatient HUNDL BESS [facility] [id number] [facility] 2024-06-28 15:30:00 2024-06-28 15:30:00 Outpatient TIE, MATTHEW [facility] [id number] [facility] 2024-06-27 11:50:00 2024-06-27 11:50:00 Outpatient TIE, MATTHEW [facility] [id number] [facility] 2024-06-22 00:00:00 2024-06-22 00:00:00 Outpatient MD ISA KINGSTON [id number] [facility] 2024-06-14 10:40:00 2024-06-14 10:40:00 Outpatient HALI, KURT [facility] [id number] [facility] 2024-06-12 00:00:00 2024-06-12 00:00:00 Outpatient HUNDL BESS MC[facility] [id number] [facility] 2024-06-05 00:00:00 2024-06-05 00:00:00 Outpatient HALI, KURT MC[facility] [id number] [facility] 2024-05-26 15:15:00 2024-05-26 15:15:00 Outpatient SRIDHAR BHATT [facility] [id number] [facility] 2024-05-25 00:00:00 2024-05-25 00:00:00 Outpatient ISA MCWILLIAMS [id number] [facility] 2024-05-24 00:00:00 2024-05-24 11:03:00 Letter (Out) Campaigns, Generic Provider [facility] 1.840.114 350.1.13.10 4.2.7.2.686 [id number] [facility] 2024-05-19 09:45:00 2024-05-19 09:45:00 Outpatient MATTHEW UREÑA ISA MCWILLIAMS [id number] [facility] 2024-05-17 10:20:00 2024-05-17 10:20:00 Outpatient HALI KURT ISA MCWILLIAMS [id number] [facility] 2024-05-17 09:50:00 2024-05-17 09:50:00 Outpatient ISA MCWILLIAMS [id number] [facility] 2024-05-17 09:45:00 2024-05-17 09:45:00 Outpatient ISA MCWILLIAMS [id number] [facility] 2024-05-17 00:00:00 2024-05-17 00:00:00 Outpatient KURT LAL ISA MCWILLIAMS [id number] [facility] 2024-05-16 10:10:00 2024-05-16 10:10:00 Outpatient TAMMIE MCKEON [facility] [id number] [facility] 2024-05-14 11:10:00 2024-05-14 13:13:00 Emergency X BRIANA HENRY [facility] ERT [id number] [facility] 2024-05-14 11:10:00 2024-05-14 13:13:00 Emergency Briana Henry [facility] 1..840.114 350.1.13.10 4.2.7.2.686 [id number] [facility] 2024-05-11 00:00:00 2024-05-11 00:00:00 Outpatient HUNDL, BESS ISA MCWILLIAMS [id number] [facility] 2024-05-10 15:00:00 2024-05-10 15:00:00 Outpatient MAC, EKG- ISA MCWILLIAMS [id number] [facility] 2024-05-10 14:30:00 2024-05-10 14:30:00 Outpatient NIRANJANMATTHEW ISA MCWILLIAMS [id number] Isa [facility] 2024-05-10 00:00:00 2024-05-10 00:00:00 Outpatient HUNDL, BESS MCWILLIAMS [id number] Isa [facility] 2024-04-27 00:00:00 2024-04-27 00:00:00 Outpatient HUNDL, BESS MCWILLIAMS [id number] [facility] 2024-04-24 15:40:00 2024-04-24 15:40:00 Outpatient ISA MCWILLIAMS [id number] [facility] 2024-04-21 15:30:00 2024-04-21 15:30:00 Outpatient HUNDL, BESS MCWILLIAMS [id number] [facility] 2024-04-14 00:00:00 2024-04-14 00:00:00 Outpatient PREZADEEDEE Lynch ISA MCWILLIAMS [id number] [facility] 2024-04-10 00:00:00 2024-04-10 00:00:00 Outpatient HUNDL, BESS MCWILLIAMS [id number] [facility] 2024-04-07 00:00:00 2024-04-07 00:00:00 Outpatient HUNDL BESS MCWILLIAMS [id number] [facility] 2024-03-24 16:15:00 2024-03-24 16:15:00 Outpatient HANNY-ERVIN HENDRICKS [id number] [facility] 2024-03-24 15:20:00 2024-03-24 15:20:00 Outpatient ISA MCWILLIAMS [id number] [facility] 2024-03-24 15:00:00 2024-03-24 15:00:00 Outpatient ALBA CAMPBELL ISA MCWILLIAMS [id number] [facility] 2024-03-23 16:30:00 2024-03-23 16:30:00 Outpatient HANNY-AMERVIN MAYER ISA MCWILLIAMS [id number] Isa [facility] 2024-03-16 14:00:00 2024-03-16 14:00:00 Outpatient HUNDBESS Galeano ISA MCWILLIAMS [id number] [facility] 2024-03-15 00:00:00 2024-03-15 00:00:00 Outpatient PREZAS, DEEDEE ISA MCWILLIAMS [id number] [facility] 2024-03-14 00:00:00 2024-03-14 00:00:00 Outpatient PREZAS, DEEDEE ISA MCWILLIAMS [id number] [facility] 2024-03-13 10:40:00 2024-03-13 10:40:00 Outpatient LAB90 ISA MCWILLIAMS [id number] [facility] 2024-02-17 00:00:00 2024-02-17 00:00:00 Outpatient JUSTICEJACE ISA MCWILLIAMS [id number] [facility] 2024-01-09 00:00:00 2024-01-09 00:00:00 Outpatient PREZAS, DEEDEE ISA MCWILLIAMS [id number] [facility] 2024-01-07 10:30:00 2024-01-07 10:30:00 Outpatient PREZAS, DEEDEE MCWILLIAMS [id number] Isa [facility] 2023-12-01 00:00:00 2023-12-01 00:00:00 Outpatient PREZAS, DEEDEE MCWILLIAMS [id number] Isa [facility] 2023 00:00:00 2023 00:00:00 Outpatient PREZAS, DEEDEE MCWILLIAMS [id number] Isa [facility] 2023-10-20 00:00:00 2023-10-20 00:00:00 Outpatient PREZAS, DEEDEESEBASTIAN MCWILLIAMS [id number] Isa [facility] 2023-09-14 00:00:00 2023-09-14 00:00:00 Outpatient PREZASDEEDEE [id number] Isa [facility] 2023-04-23 10:30:00 2023-04-23 10:30:00 Outpatient PREZAS, DEEDEE MCWILLIAMS [id number] [facility] 2023-04-04 00:00:00 2023-04-04 00:00:00 Outpatient PREZAS, DEEDEE MCWILLIAMS [id number] Isa [facility] 2023-04-02 10:50:00 2023-04-02 10:50:00 Outpatient LAB90 ISA MCWILLIAMS [id number] Isa [facility] 2023-03-29 00:00:00 2023-03-29 00:00:00 Outpatient PREZAS, DEEDEE MCWILLIAMS [id number] Isa [facility] 2023-03-29 00:00:00 2023-03-29 00:00:00 Outpatient PREZASDEEDEE ISA [id number] Isa [facility] 2023-03-19 08:45:00 2023-03-19 08:45:00 Outpatient PREZAS, DEEDEE MCWILLIAMS [id number] [facility] 2023-01-09 20:34:00 2023-01-09 22:37:00 Emergency X AMBER TREVINO [facility] ERT [id number] [facility] 2023-01-09 20:34:00 2023-01-09 22:37:00 Emergency Amber Trevino [facility] ..840.114 350.1.13.10 4.2.7.2.686 [id number] [facility] 2020-09-04 00:00:00 2020-09-04 00:00:00 Transition of Care Kimberly Diaz 1..840.114 350.1.13.10 4.2.7.2.686 [id number] 2020-09-04 00:00:00 2020-09-04 00:00:00 Transition of Care Kimberly Diaz 1.2.840.114 350.1.13.10 4.2.7.2.686 [id number] [facility] 2020-09-03 00:00:00 2020-09-03 00:00:00 Transition of Care Kimberly Diaz 1.2.840.114 350.1.13.10 4.2.7.2.686 [id number] 2020-09-03 00:00:00 2020-09-03 00:00:00 Transition of Care Kimberly Diaz 1.2.840.114 350.1.13.10 4.2.7.2.686 [id number] [facility] 2020-08-29 11:59:00 2020-09-01 16:25:00 Hospital Encounter AdanAntonella giraldo [facility] 1.2.840.114 350.1.13.10 4.2.7.2.686 [id number] 2020-08-29 11:59:00 2020-09-01 16:25:00 Hospital Encounter AdanAntonella giraldo [facility] 1.2.840.114 350.1.13.10 4.2.7.2.686 [id number] [facility] 2020-08-25 19:27:00 2020-08-25 22:27:00 Emergency Yuliya [facility] 1.2.840.114 350.1.13.10 4.2.7.2.686 [id number] 2020-08-25 19:27:00 2020-08-25 22:27:00 Emergency Yuliya [facility] 1.2.840.114 350.1.13.10 4.2.7.2.686 [id number] [facility] 2020-08-22 00:00:00 2020-08-22 00:00:00 Nurse Triage [facility] 1.2.840.114 350.1.13.10 4.2.7.2.686 [id number] 2020-08-22 00:00:00 2020-08-22 00:00:00 Nurse Triage [facility] 1.2.840.114 350.1.13.10 4.2.7.2.686 [id number] [facility] 2020-02-07 11:45:00 2020-02-07 11:45:00 Outpatient JORGE GRIFFITH [facility] [id number] [facility] 2019-05-23 19:30:00 2019-05-23 19:30:00 Ambulatory Pre-Reg nullFlavo r [facility] Primary Care [facility] [id number] Bud Hernandez 2018-12-06 16:00:00 2018-12-07 05:59:59 Outpatient nullFlavo r [facility] Primary Care [place] [id number] Bud Hernandez 2018-09-13 16:00:00 2018-09-13 16:00:00 Ambulatory Pre-Reg nullFlavo r [facility] Primary Care [facility] [id number] Bud Hernandez 2018-06-11 16:20:00 2018-06-11 16:20:00 Outpt Diag Services nullFlavo r [facility] Outpatient Imaging [place] [id number] Bud Hernandez 2018-06-02 09:20:00 2018-06-02 09:20:00 Appointmen t; DAVON CASTRO M.D. [facility] [place], [place], M.D. [facility], [address] [id number] [place] 2018-04-21 10:30:00 2018-04-21 10:30:00 Appointmen t; DAVON CASTRO M.D. [facility], [place], M.D. [facility], [address] [id number] [place] Phys[place] 2016-11-22 21:24:00 2016-11-23 03:20:00 Emergency nullFlavo r [facility] [id number] Bud Hernandez 2016-01-24 13:15:00 2016-01-24 13:15:00 Outpatient DAVID HERNANDEZ [id number] Bud Hernandez 2015-07-11 13:15:00 2015-08-10 04:59:00 OP Therapy Patients nullFlavo r [facility] [id number] Bud Hernandez 2015-07-23 07:00:00 2015-07-23 07:00:00 Outpatient JACOBIE DAVID [id number] Bud Hernandez 2015-06-28 07:30:00 2015-06-28 07:30:00 Outpatient ORA HERNANDEZ [id number] Bud Hernandez 2015-06-06 15:00:00 2015-06-06 15:00:00 Outpatient IE DAVID [id number] Bud Hernandez Results Test Description Test Time Test Comments Results Result Comments Source XR TIBIA FIBULA 2 VW LEFT 17:01:34 EXAM: XR ANKLE <3 VW LEFT, XR TIBIA FIBULA 2 VW LEFT HISTORY: 48 years-old Female with left lower leg pain after falling out ofchair. COMPARISON: None. FINDINGS: Radiographs of the left ankle and tibia-fibula were obtained. Nondisplacedtransverse oriented lucency is seen involving the mid fibular diaphysis.The ankle mortise is anatomic. There is soft tissue swelling over thelateral mid foreleg. [facility] XR ANKLE <3 VW LEFT 17:01:34 EXAM: XR ANKLE <3 VW LEFT, XR TIBIA FIBULA 2 VW LEFT HISTORY: 48 years-old Female with left lower leg pain after falling out ofchair. COMPARISON: None. FINDINGS: Radiographs of the left ankle and tibia-fibula were obtained. Nondisplacedtransverse oriented lucency is seen involving the mid fibular diaphysis.The ankle mortise is anatomic. There is soft tissue swelling over thelateral mid foreleg. [facility] 13:36:00* Test Item Value Reference Range Interpretation Comme nts POCT GLU (test code = 5748771095) 121 mg/dL 70-110 H Lab Interpretation (test cod e = 43661-7) Abnormal [facility] Metabolic Panel (NA, K, CL, CO2, GLUCOSE, BUN, CREATININE, CA)2020-09-01 12:49:00* Test Item Value Reference Range Interpretation Comme nts NA (test code = 0111914082) 136 mmol/L 135-145 K (test code = 5300214579) 3.6 mmol/L 3.5-5 CL (test code = 7713085485) 100 mmol/L 98-108 CO2 TOTAL (test code = 9350918667) 28 mmol/L 23-31 AGAP (test code = 6800783488) 2-16 BUN (test code = 5115312810) 15 mg/dL 7-23 GLUCOSE (test code = 5026426019) 160 mg/dL 70-110 H CREATININE (test code = 9110349529) 0.45 mg/dL 0.5-1.04 L CALCIUM (test code = 2427709490) 9.0 mg/dL 8.6-10.6 eGFR Calculation (Non-) (test code = 6419419730) mL/min/1.73m2 eGFR Calculation () (test code = 4664834022) mL/min/1.73m2 MIGUE (test code = MIGUE) Association of Glomerular Filtration Rate (GFR) and Staging of Kidney Disease* + --+ --+ ------+| GFR (mL/min/1.73 m2) ?| With Kidney Damage ?| ?Without Kidney Damage+ --------+ --------+ +| ?>90 ?| ?Stage one ?| ? Normal ?+ ---+ ---+ -------+| ?60-89 ?| ?Stage two ?| ? Decreased GFR ? + --+ --+ ------+| ?30-59 ?| ?Stage three ?| ? Stage three ? + --+ --+ ------+| ?15-29 ?| ?Stage four ? | ? Stage four ?+ ---+ ---+ -------+| ?<15 (or dialysis) ? ?| ?Stage five ? | ? Stage five ?+ ---+ ---+ -------+ *Each stage assumes the associated GFR level has been in effect for at least three months. ?Stages 1 to 5, with or without kidney disease, indicate chronic kidney disease. Notes: Determination of stages one and two (with eGFR >59mL/min/1.73 m2) requires estimation of kidney damage for at least three months as defined by structural or functional abnormalities of the kidney, manifested by either:Pathological abnormalities or Markers of kidney damage (including abnormalities in the composition of the blood or urine or abnormalities in imaging tests). Lab Interpretation (test code = 63112-2) Abnormal [facility] with Mdtevqrakxdp0717-45-08 11:34:00* Test Item Value Reference Range Interpretation Comme nts WBC (test code = 6690-2) See_Comment [Automated [employer]] The system which generated this result transmitted reference range: 4.30 - 11.10 10*3/?L. The reference range was not used to interpret this result as normal/abnormal. RBC (test code = 789-8) See_Comment [Automated [employer]] The system which generated this result transmitted reference range: 3.93 - 5.25 10*6/?L. The reference range was not used to interpret this result as normal/abnormal. HGB (test code = 718-7) 13.9 g/dL 11.6-15 HCT (test code = 4544-3) 39.6 % 35.7-45.2 MCV (test code = 787-2) 85.2 fL 80.6-95.5 MCH (test code = 785-6) 29.9 pg 25.9-32.8 MCHC (test code = 786-4) 35.1 g/dL 31.6-35.1 RDW-SD (test code = 11589-9) 37.8 fL 39-49.9 L RDW-CV (test code = 788-0) 12.4 % 12-15.5 PLT (test code = 777-3) See_Comment H [Automated [employer]] The system which generated this result transmitted reference range: 166 - 358 10*3/?L. The reference range was not used to interpret this result as normal/abnormal. MPV (test code = 18228-9) 9.5 fL 9.5-12.9 NRBC/100 WBC (test code = 7002764943) See_Comment [Automated me ssage] The system which generated this result transmitted reference range: 0.0 - 10.0 /100 WBCs. The reference range was not used to interpret this result as normal/abnormal. NRBC x10^3 (test code = 0344914023) <0.01 See_Comment [Automated messa ge] The system which generated this result transmitted reference range: 10*3/?L. The reference range was not used to interpret this result as normal/abnormal. GRAN MAT (NEUT) % (test code = 770-8) 58.1 % IMM GRAN % (test code = 3782960529) 4.70 % LYMPH % (test code = 736-9) 29.7 % MONO % (test code = 5905-5) 7.0 % EOS % (test code = 713-8) 0.1 % BASO % (test code = 706-2) 0.4 % GRAN MAT x10^3(ANC) (test code = 8607332005) 4.80 10*3/uL 1.88-7.09 IMM GRAN x10^3 (test code = 6747209084) 0.39 10*3/uL 0-0.06 H LYMPH x10^3 (test code = 731-0) 2.46 10*3/uL 1.32-3.29 MONO x10^3 (test code = 742-7) 0.58 10*3/uL 0.33-0.92 EOS x10^3 (test code = 711-2) <0.03 0.03-0.39 L BASO x10^3 (test code = 704-7) 0.03 10*3/uL 0.01-0.07 Lab Interpretation (test code = 50397-3) Abnormal [facility] GLUCOSE (AUTOMATED)2020-08-31 22:51:00* Test Item Value Reference Range Interpretation Comme nts POCT GLU (test code = 5372097674) 371 mg/dL 70-110 H Lab Interpretation (test cod e = 30172-5) Abnormal [facility] GLUCOSE (AUTOMATED)2020-08-31 17:16:00* Test Item Value Reference Range Interpretation Comme nts POCT GLU (test code = 3097988098) 334 mg/dL 70-110 H Lab Interpretation (test cod e = 11619-9) [facility]2020-[facility] 13:31:00* Test Item Value Reference Range Interpretation Comme [facility] POCT GLU (test code = 0740114906) 220 mg/dL 70-110 H Lab Interpretation (test cod e = 94895-2) [facility]31 11:20:00* Test Item Value Reference Range Interpretation Comme nts NA (test code = 3268305761) 135 mmol/L 135-145 K (test code = 7358067727) 4.7 mmol/L 3.5-5 CL (test code = 2499684162) 98 mmol/L 98-108 CO2 TOTAL (test code = 5382779199) 28 mmol/L 23-31 AGAP (test code = 9078922675) 2-16 BUN (test code = 9945924070) 16 mg/dL 7-23 GLUCOSE (test code = 7395465435) 234 mg/dL 70-110 H CREATININE (test code = 4201892926) 0.42 mg/dL 0.5-1.04 L TOTAL BILI (test code = 7229500394) 0.5 mg/dL 0.1-1.1 CALCIUM (test code = 4606306846) 9.1 mg/dL 8.6-10.6 T PROTEIN (test code = 9105787005) 6.5 g/dL 6.3-8.2 ALBUMIN (test code = 0382724668) 3.4 g/dL 3.5-5 L ALK PHOS (test code = 9595058609) 93 U/L 34-122 ALTv (test code = 1742-6) 35 U/L 5-35 AST(SGOT) (test code = 8138208565) 32 U/L 13-40 eGFR Calculation (Non-) (test code = 8290474950) mL/min/1.73m2 eGFR Calculation () (test code = 9954657955) mL/min/1.73m2 MIGUE (test code = MIGUE) Association of Glomerular Filtration Rate (GFR) and Staging of Kidney Disease* + --+ --+ ------+| GFR (mL/min/1.73 m2) ?| With Kidney Damage ?| ?Without Kidney Damage+ --------+ --------+ +| ?>90 ?| ?Stage one ?| ? Normal ?+ ---+ ---+ -------+| ?60-89 ?| ?Stage two ?| ? Decreased GFR ? + --+ --+ ------+| ?30-59 ?| ?Stage three ?| ? Stage three ? + --+ --+ ------+| ?15-29 ?| ?Stage four ? | ? Stage four ?+ ---+ ---+ -------+| ?<15 (or dialysis) ? ?| ?Stage five ? | ? Stage five ?+ ---+ ---+ -------+ *Each stage assumes the associated GFR level has been in effect for at least three months. ?Stages 1 to 5, with or without kidney disease, indicate chronic kidney disease. Notes: Determination of stages one and two (with eGFR >59mL/min/1.73 m2) requires estimation of kidney damage for at least three months as defined by structural or functional abnormalities of the kidney, manifested by either:Pathological abnormalities or Markers of kidney damage (including abnormalities in the composition of the blood or urine or abnormalities in imaging tests). Lab Interpretation (test code = 04247-2) Abnormal [facility] with Megfvxsycrse9087-52-79 11:11:00* Test Item Value Reference Range Interpretation Comme nts WBC (test code = 6690-2) See_Comment [[employer]] The system which generated this result transmitted reference range: 4.30 - 11.10 10*3/?L. The reference range was not used to interpret this result as normal/abnormal. RBC (test code = 789-8) See_Comment [Automated [employer]] The system which generated this result transmitted reference range: 3.93 - 5.25 10*6/?L. The reference range was not used to interpret this result as normal/abnormal. HGB (test code = 718-7) 13.8 g/dL 11.6-15 HCT (test code = 4544-3) 39.6 % 35.7-45.2 MCV (test code = 787-2) 85.5 fL 80.6-95.5 MCH (test code = 785-6) 29.8 pg 25.9-32.8 MCHC (test code = 786-4) 34.8 g/dL 31.6-35.1 RDW-SD (test code = 77055-8) 38.5 fL 39-49.9 L RDW-CV (test code = 788-0) 12.3 % 12-15.5 PLT (test code = 777-3) See_Comment H [Automated messa ge] The system which generated this result transmitted reference range: 166 - 358 10*3/?L. The reference range was not used to interpret this result as normal/abnormal. MPV (test code = 53331-6) 9.4 fL 9.5-12.9 L NRBC/100 WBC (test code = 8576838521) See_Comment [Automated [employer] ssage] The system which generated this result transmitted reference range: 0.0 - 10.0 /100 WBCs. The reference range was not used to interpret this result as normal/abnormal. NRBC x10^3 (test code = 2164554610) <0.01 See_Comment [Automated messa ge] The system which generated this result transmitted reference range: 10*3/?L. The reference range was not used to interpret this result as normal/abnormal. GRAN MAT (NEUT) % (test code = 770-8) 76.0 % IMM GRAN % (test code = 8897966330) 1.70 % LYMPH % (test code = 736-9) 16.4 % MONO % (test code = 5905-5) 5.7 % EOS % (test code = 713-8) 0.0 % BASO % (test code = 706-2) 0.2 % GRAN MAT x10^3(ANC) (test code = 4688283434) 6.35 10*3/uL 1.88-7.09 IMM GRAN x10^3 (test code = 5509007466) 0.14 10*3/uL 0-0.06 H LYMPH x10^3 (test code = 731-0) 1.37 10*3/uL 1.32-3.29 MONO x10^3 (test code = 742-7) 0.48 10*3/uL 0.33-0.92 EOS x10^3 (test code = 711-2) <0.03 0.03-0.39 L BASO x10^3 (test code = 704-7) <0.03 0.01-0.07 Lab Interpretation (test code = 74169-2) Abnormal [facility] GLUCOSE (AUTOMATED)2020-08-30 22:13:00* Test Item Value Reference Range Interpretation Comme nts POCT GLU (test code = 1840312984) 291 mg/dL 70-110 H Lab Interpretation (test cod e = 38862-1) [facility] [id number] 21:10:00COVID DMT InterpretationInterpretation/RecommendationsTests (PCR) for Active Infection by COVID-19 Virus:This result indicates that the patient has been infected with the COVID-19 virus. At this time, the patient should be considered infectious and able to transmit the virus to others. From the onset of symptoms, if any, this result is likely to remain positive for 2 to 4 weeks.Tests for IgM and/or IgG Antibodies to COVID-19 Virus:Testing for IgM and IgG antibodies in the future, using a blood sample, will indicate whether the patient has produced antibodies to the virus. At this time, it is not known if the production of antibodies indicates whether the patient is immune to future infections with the COVID-19 virus.Some patients who have been positive for COVID-19 with a nasopharyngeal swab specimen do not generate IgG antibodies to the virus. It is possible that patients with a positive PCR test who have no symptoms or mild symptoms do not generate antibodies. It is also possible that the antibodies were not detected because they were not present at the time the blood sample was taken.[facility] SERVICESCOVID QmgnvehBHUC-HdN-7 Rapid ID NOW (no units) ? ? Date ? Value ? 08/29/2020 ? Positive (A) ? [facility]2020-08-30 17:33:00* Test Item Value Reference Range Interpretation Comme nts POCT GLU (test code = 5349618548) 319 mg/dL 70-110 H Lab Interpretation (test cod e = 08043-5) [facility]2020-08-30 13:26:00* Test Item Value Reference Range Interpretation Comme nts POCT GLU (test code = 2013017692) 269 mg/dL 70-110 H Lab Interpretation (test cod e = 09392-2) Abnormal [facility] Metabolic Panel (NA, K, CL, CO2, GLUCOSE, BUN, CREATININE, CA)2020-08-30 11:54:00* Test Item Value Reference Range Interpretation Comme nts NA (test code = 3564077782) 136 mmol/L 135-145 K (test code = 3526290004) 4.6 mmol/L 3.5-5 CL (test code = 6459220475) 97 mmol/L 98-108 L CO2 TOTAL (test code = 0027934055) 27 mmol/L 23-31 AGAP (test code = 7945004091) 2-16 BUN (test code = 4363055881) 19 mg/dL 7-23 GLUCOSE (test code = 5662621973) 267 mg/dL 70-110 H CREATININE (test code = 8362443930) 0.38 mg/dL 0.5-1.04 L CALCIUM (test code = 6247299863) 9.4 mg/dL 8.6-10.6 eGFR Calculation (Non-) (test code = 5074667554) mL/min/1.73m2 eGFR Calculation () (test code = 1168243752) mL/min/1.73m2 MIGUE (test code = MIGUE) Association of Glomerular Filtration Rate (GFR) and Staging of Kidney Disease* + --+ --+ ------+| GFR (mL/min/1.73 m2) ?| With Kidney Damage ?| ?Without Kidney Damage+ --------+ --------+ +| ?>90 ?| ?Stage one ?| ? Normal ?+ ---+ ---+ -------+| ?60-89 ?| ?Stage two ?| ? Decreased GFR ? + --+ --+ ------+| ?30-59 ?| ?Stage three ?| ? Stage three ? + --+ --+ ------+| ?15-29 ?| ?Stage four ? | ? Stage four ?+ ---+ ---+ -------+| ?<15 (or dialysis) ? ?| ?Stage five ? | ? Stage five ?+ ---+ ---+ -------+ *Each stage assumes the associated GFR level has been in effect for at least three months. ?Stages 1 to 5, with or without kidney disease, indicate chronic kidney disease. Notes: Determination of stages one and two (with eGFR >59mL/min/1.73 m2) requires estimation of kidney damage for at least three months as defined by structural or functional abnormalities of the kidney, manifested by either:Pathological abnormalities or Markers of kidney damage (including abnormalities in the composition of the blood or urine or abnormalities in imaging tests). Lab Interpretation (test code = 32345-6) Abnormal [facility] with Enhynmoqduxy6174-52-33 11:12:00* Test Item Value Reference Range Interpretation Comme nts WBC (test code = 6690-2) See_Comment [[employer]] The system which generated this result transmitted reference range: 4.30 - 11.10 10*3/?L. The reference range was not used to interpret this result as normal/abnormal. RBC (test code = 789-8) See_Comment [[employer]] The system which generated this result transmitted reference range: 3.93 - 5.25 10*6/?L. The reference range was not used to interpret this result as normal/abnormal. HGB (test code = 718-7) 14.0 g/dL 11.6-15 HCT (test code = 4544-3) 40.2 % 35.7-45.2 MCV (test code = 787-2) 85.7 fL 80.6-95.5 MCH (test code = 785-6) 29.9 pg 25.9-32.8 MCHC (test code = 786-4) 34.8 g/dL 31.6-35.1 RDW-SD (test code = 01953-9) 38.4 fL 39-49.9 L RDW-CV (test code = 788-0) 12.4 % 12-15.5 PLT (test code = 777-3) See_Comment [[employer]] The system which generated this result transmitted reference range: 166 - 358 10*3/?L. The reference range was not used to interpret this result as normal/abnormal. MPV (test code = 45448-7) 9.8 fL 9.5-12.9 NRBC/100 WBC (test code = [id number]) See_Comment [Automated me ssage] The system which generated this result transmitted reference range: 0.0 - 10.0 /100 WBCs. The reference range was not used to interpret this result as normal/abnormal. NRBC x10^3 (test code = 1137176338) <0.01 See_Comment [Automated messa ge] The system which generated this result transmitted reference range: 10*3/?L. The reference range was not used to interpret this result as normal/abnormal. GRAN MAT (NEUT) % (test code = 770-8) 81.7 % IMM GRAN % (test code = 4667359557) 0.90 % LYMPH % (test code = 736-9) 13.0 % MONO % (test code = 5905-5) 4.3 % EOS % (test code = 713-8) 0.0 % BASO % (test code = 706-2) 0.1 % GRAN MAT x10^3(ANC) (test code = 2889177017) 7.79 10*3/uL 1.88-7.09 H IMM GRAN x10^3 (test code = 0867708170) 0.09 10*3/uL 0-0.06 H LYMPH x10^3 (test code = 731-0) 1.24 10*3/uL 1.32-3.29 L MONO x10^3 (test code = 742-7) 0.41 10*3/uL 0.33-0.92 EOS x10^3 (test code = 711-2) <0.03 0.03-0.39 L BASO x10^3 (test code = 704-7) <0.03 0.01-0.07 Lab Interpretation (test code = 93046-1) [facility], [id number] 08:19:00* Test Item Value Reference Range Interpretation Comme nts VIT B12 (test code = 5714540022) 433 pg/mL 240-930 MIGUE (test code = MIGUE) Biotin has been reported to cause a positive bias, interpret results relative to patient's use of biotin. Lab Interpretation (test code = 31058-0) Normal [facility] CenterLEGIONELLA URINARY ANTIGEN [id number] 08:16:00* Test Item Value Reference Range Interpretation Comme nts Legionella Urinary Antigen (test code = 8391244149) Negative Negative MIGUE (test code = MIGUE) Negative for L. pneumophilia serogroup I antigen in urine suggesting no recent or current infection. Infection due to Legionella cannot be ruled out since other serogroups and species may cause disease. Furthermore, antigens may not be present in urine during early stage of infection, or the level of antigen present in urine may be below the detection limit of the test. Lab Interpretation (test code = 97817-7) Normal [facility] CenterV[facility] D, [id number] 08:12:00* Test Item Value Reference Range Interpretation Comme nts VIT D 25OH (test code = 68294-2) <13 25-80 L MIGUE (test code = MIGUE) Deficiency: <20 ng/mLInsufficiency: 20-24 ng/mLOptimal: 25-80 ng/mL Lab Interpretation (test code = 44874-5) [facility]normal [facility] CenterPROCALCITONIN2020-10-16 07:52:00* Test Item Value Reference Range Interpretation Comme nts Procalcitonin (test code = 7154144404) 0.45 ng/mL <0.07 H MIGUE (test code = MIGUE) INTERPRETATION OF PROCALCITONIN RESULTS IN ADULTS >= 18 YEARS OF AGE Initiation and discontinuation of antibiotics on patients with suspected or confirmed Lower Respiratory Tract Infection in Adults >= 18 years of age. + +-------- --------+ + -----+|Procalcitonin |Interpretation ?|Antibiotic ? ? |Considerations ? |ng/mL ? | ?|recommendation | ? + +-------- --------+ + -----+| <0.1 ? | Bacterial ? ? ?| Strongly ? ? ?| ? | ?| infection very | discouraged ? | Overruling: ? | ?| unlikely ? ? ? | ? | ? Clinically unstable ? ? ? + +-------- --------+ + ? High risk for adverse ? ? | <0.25 ?| Bacterial ? ? ?| Discouraged ? | ? outcome ? | ?| infection ? ? ?| ? | ? SEE IMPORTANT NOTE ?| ?| unlikely ? ? ? | ? | ? + +-------- --------+ + -----+| >=0.25 ? ? ? | Bacterial ? ? ?| Encouraged ? ?| ? | ?| infection ? ? ?| ? | ? | ?| likely ? | ? | Consider treatment failure ?+ +------- ---------+ -+ if levels does not decrease | >0.5 ? | Bacterial ? ? ?| Strongly ? ? ?| appropriately ? | ?| infection very | encouraged ? ?| ? | ?| likely ? | ? | ? + +-------- --------+ + -----+ Discontinuation of antibiotics in high-acuity patients with suspected or confirmed sepsis in Adults >= 18 years of age. + +-------- --------+ + -----+|Procalcitonin |Interpretation ?|Antibiotic ? ? |Considerations ? |ng/mL ? | ?|recommendation | ? + +-------- --------+ + -----+| <0.25 ?| Bacterial ? ? ?| Strongly ? ? ?| ? | ?| infection very | discouraged ? | Overruling: ? | ?| unlikely ? ? ? | ? | ? Clinically unstable ? ? ? + +-------- --------+ + ? High risk for adverse ? ? | <0.5 or drop | Bacterial ? ? ?| Discouraged ? | ? outcome ? | >80% from ? ?| infection ? ? ?| ? | ? SEE IMPORTANT NOTE ?| highest PCT ?| unlikely ? ? ? | ? | ? | level ?| ?| ? | ? + +-------- --------+ + -----+| >=0.5 ?| Bacterial ? ? ?| Encouraged ? ?| ? | ?| infection ? ? ?| ? | ? | ?| likely ? | ? | Consider treatment failure ?+ +------- ---------+ -+ if levels does not decrease | >1.0 ? | Bacterial ? ? ?| Strongly ? ? ?| appropriately ? | ?| infection very | encouraged ? ?| ? | ?| likely ? | ? | ? + +-------- --------+ + -----+ Percentage of drop of Procalcitonin calculation for Discontinuation of antibiotics in high-acuity patients with suspected or confirmed sepsis in Adults >= 18 years of age. ? Procalcitonin highest{}-Procalcitonin current{}Delta Procalcitonin = x100% ? Procalcitonin current {} IMPORTANT NOTE: Procalcitonin may be elevated without bacterial infection by physiologic stress related to trauma, jarvis, chronic dialysis, metastatic cancer, surgery in the past seven days, malaria, some fungal infections, and some forms of vasculitis. The interpretation algorithm may not apply to patients with immunosuppression (equivalent of >10 mg of prednisone daily), HIV with CD4 cell count < 350 cells/mm3, active malignancy on systemic chemotherapy, solid organ transplant or hematopoietic stem cell transplantation, or hospital acquired pneumonia. Additionally, some clinical trials of procalcitonin have excluded patients with shock requiring vasopressor use, acute respiratory failure requiring mechanical ventilation, or those with known lung abscess/empyema. For further information please refer to:[email or web address] Lab Interpretation (test code = 66463-4) Abnormal [facility] CenterPNEUMOCOCCAL [id number] 04:24:00* Test Item Value Reference Range Interpretation Comme nts S. pneumoniae antigen (test code = 0763259201) Negative Negative Lab Interpretation (test cod e = 23767-2) Normal [facility] CenterURINALYSIS2020-10-16 01:42:00* Test Item Value Reference Range Interpretation Comme nts APPEARANCE (test code = 7578785518) Clear Clear COLOR (test code = 9845886427) Yellow Yellow PH (test code = 1005508326) 4.8-8.0 SP GRAVITY (test code = 6303950660) >1.060 1.003-1.030 H GLU U QUAL (test code = 5866762000) 500 mg/dL Normal A BLOOD (test code = 7837189119) Negative Negative KETONES (test code = 8152055688) 80 mg/dL Negative A PROTEIN (test code = 2887-8) 30 mg/dL Negative A UROBILIN (test code = 1560584639) Normal Normal BILIRUBIN (test code = 8396955394) Negative Negative NITRITE (test code = 0411838911) Negative Negative LEUK ZACH (test code = 9841779434) Negative Negative RBC/HPF (test code = 2487185864) See_Comment [Automated messa ge] The system which generated this result transmitted reference range: 0 - 3 HPF. The reference range was not used to interpret this result as normal/abnormal. WBC/HPF (test code = 4509048228) See_Comment [Automated StatsMixa ge] The system which generated this result transmitted reference range: 0 - 5 HPF. The reference range was not used to interpret this result as normal/abnormal. BACTERIA (test code = 0782429066) Moderate Negative A MUCOUS (test code = 8774568000) Slight Negative LPF A SQ EPITH (test code = 9568759180) HPF HYAL CAST (test code = 5494163572) See_Comment H [Automated messa ge] The system which generated this result transmitted reference range: <=2 LPF. The reference range was not used to interpret this result as normal/abnormal. Lab Interpretation (test code = 14356-2) [facility]normal [facility] CenterPOCT GLUCOSE (AUTOMATED)2020-08-30 01:04:00* Test Item Value Reference Range Interpretation Comme nts POCT GLU (test code = 1416167331) 405 mg/dL 70-110 H Lab Interpretation (test cod e = 89919-4) Abnormal [facility] CenterFERRITIN [id number] 00:36:00* Test Item Value Reference Range Interpretation Comme nts FERRITIN (test code = 3492354940) 196.0 ng/mL 6-137 H MIGUE (test code = MIGUE) Biotin has been reported to cause a negative bias, interpret results relative to patient's use of biotin. Lab Interpretation (test code = 85589-9) Abnormal [facility] CenterTHYROID STIMULATING [id number] 00:32:00 * Test Item Value Reference Range Interpretation Comme nts TSH (test code = 8226892704) See_Comment Biotin has been reported to cause a negative bias, interpret results relative to patient's use of biotin. [Automated message] The system which generated this result transmitted reference range: 0.45 - 4.70 mIU/L. The reference range was not used to interpret this result as normal/abnormal. Lab Interpretation (test code = 80757-9) Normal [facility] CenterPOCT GLUCOSE (AUTOMATED)2020-08-29 22:19:00* Test Item Value Reference Range Interpretation Comme [facility] POCT GLU (test code = 7879723451) 325 mg/dL 70-110 H Lab Interpretation (test cod e = 97866-8) Abnormal [facility] CenterGLYCOSYLATED HEMOGLOBIN (A1C)2020-08-29 22:01:00* Test Item Value Reference Range Interpretation Comme nts HGB A1C (test code = 4548-4) 10.4 % 4-6 H MIGUE (test code = MIGUE) %A1C (NGSP) Interpretation (ADA)4.8-5.6 ? ? Normal or (Non-Diabetic Range)5.7-6.4 ? ? Increased Risk (Pre-Diabetic)>6.5 ?Diabetes Indicated Lab Interpretation (test code = 38246-8) Abnormal [facility] CenterCT CHEST PULMONARY [id number] 19:58:24HISTORY: Chest pain, rule out P.E. TECHNIQUE: Contrast-enhanced 64- mutidetector CT scan of the chest wascompleted with intravenous injection of ?Omnipaque-350 non ionic contrastmedium. Subsequently numerous sagittal, coronal and MIP reformations weregenerated. FINDINGS: Visualized portions of the thyroid gland appear normal. Tracheaand central bronchial airways appear normal. No acute pulmonary thromboembolism detected. No enlarged hilar ormediastinal lymph nodes.No pneumothorax or pneumomediastinum. No pleural effusion or pericardialeffusion.Widespread bilateral groundglass hazy pulmonary infiltrates are seen, someof which are more peripherally based. Short sliding hiatal hernia noted. No aggressive bone lesions or compression fractures seen in the thoracicvertebral bodies.. CONCLUSIONS:1. No acute pulmonary thromboembolism.2. Bilateral atypical pulmonary infiltrates. Etiology could beCOVID 19infection. Please correlate. [facility], Radiant Results Inft User - 08/29/2020 2:59 PM CDTHISTORY: Chest pain, rule out P.E.TECHNIQUE: Contrast-enhanced 64- mutidetector CT scan of the chest wascompleted with intravenous injection of Omnipaque-350 non ionic contrastmedium. Subsequently numerous sagittal, coronal and MIP reformations weregenerated.FINDINGS: Visualized portions of the thyroid gland appear normal. Tracheaand central bronchial airways appear normal.No acute pulmonary thromboembolism detected. No enlarged hilar ormediastinal lymph nodes.No pneumothorax or pneumomediastinum. No pleural effusion or pericardialeffusion.Widespread bilateral groundglass hazy pulmonary infiltrates are seen, someof which are more peripherally based.Short sliding hiatal hernia noted.No aggressive bone lesions or compression fractures seen in the thoracicvertebral bodies..CONCLUSIONS:1. No acute pulmonary thromboembolism.2. Bilateral atypical pulmonary infiltrates. Etiology could be COVID 19infection. Please correlate.[facility] CenterAMILCAR [id number] 18:34:00 * Test Item Value Reference Range Interpretation Comme nts TROPONIN I (test code = 1777416420) <0.012 See_Comment [Automated message] The system which generated this result transmitted reference range: <=0.034 ng/mL. The reference range was not used to interpret this result as normal/abnormal. MIGUE (test code = MIGUE) Equal or Less than 0.034 ng/ml---Normal ?Note: Cardiac troponin begins to rise 3-4 hours after the onset of ischemia. Repeat in 4-6 hours if the sample was drawn within 3-4 hours of the onset of the symptom and found normal. Between 0.035 and 0.120 ng/mL--- Borderline. Questionable myocardial injury or necrosis ? ?Note: Serial measurement may be necessary to confirm or exclude the diagnosis of myocardial injury or necrosis; Clinical correlation (symptoms, EKGs, imaging studies, and others) required; Repeat in 4-6 hours if clinically indicated. ? Equal or Higher than 0.121 ng/mL---Abnormal. Myocardial Injury or Necrosis Likely ? Biotin has been reported to cause a negative bias, interpret results relative to patient's use of biotin. ? Lab Interpretation (test code = 83509-8) Normal [facility] CenterD-[id number] 18:33:00* Test Item Value Reference Range Interpretation Comments D-DIMER (test code = 8664416413) See_Comment H [Automated message] The system which generated this result transmitted reference range: <0.41 ?g/mL (FEU). The reference range was not used to interpret this result as normal/abnormal. MIGUE (test code = MIGUE) This test may be used in conjunction with a clinical pretest probability (PTP) assessment model to exclude venous thromboembolism (VTE) in patients suspected of deep venous thrombosis (DVT) and pulmonary embolism (PE) A D-Dimer value less than 0.50 ?g/ml (FEU) has a negative predicative value of 96 to 100% (95% CI)and 97 to 100% (95% CI) as an aid in the diagnosis of deep vein thrombosis (DVT) and pulmonary embolism when there is low or moderate pretest probability of PE or DVT. D-Dimer values are expressed in initial fibrinogen equivalent units (FEU)" The assay results should be used with other information, including the clinical context, in forming a diagnosis. Lab Interpretation (test code = 98289-9) Abnormal [facility] CenterCOVID-19 (ID NOW RAPID TESTING)2020-08-29 18:33:00* Test Item Value Reference Range Interpretation Comme nts SARS-CoV-2 Rapid ID NOW (test code = 73012-8) Positive Not Detected A MIGUE (test code = MIGUE) ID NOW COVID-19 As say is an isothermal nucleic acid amplification test intended for the qualitative detection of nucleic acid from SARS-CoV-2 viral RNA in nasopharyngeal (S[employer]IOR SALES ADMINISTRATOR) specimens. It is used under Emergency Use Authorization (EUA) by FDA. The limit of detection (LOD) of the assay is 125 Genome Equivalents/mL. A positive result is indicative of the presence of SARS-CoV-2 RNA. ?Clinical correlation with patient history and other diagnostic information is necessary to determine patient infection status. A negative (Not Detected) result does not preclude SARS-CoV-2 infection. In patients with clinical symptoms and other tests that are consistent with SARS-CoV-2 infection, negative results should be treated as presumptive negative and a new specimen should be tested with alternative PCR molecular test. Invalid: Please collect a new specimen for repeat patient testing if clinically indicated. Lab Interpretation (test code = 45286-3) Abnormal [facility] CenterN-TERMINAL [id number] 18:31:00* Test Item Value Reference Range Interpretation Comme nts NT-proBNP (test code = 3871946265) 66 pg/mL See_Comment [Automated message] The system which generated this result transmitted reference range: <=125. The reference range was not used to interpret this result as normal/abnormal. MIGUE (test code = MIGUE) Biotin has been reported to cause a negative bias, interpret results relative to patient's use of biotin. Lab Interpretation (test code = 59455-4) Normal [facility] CenterMAGNESIUM2020-10-15 18:24:00* Test Item Value Reference Range Interpretation Comme nts MAGNESIUM (test code = 8313200967) 2.1 mg/dL 1.7-2.4 Lab Interpretation (test cod e = 25185-0) Normal [facility] CenterCOMP. METABOLIC PANEL (30530)2020-08-29 18:23:00* Test Item Value Reference Range Interpretation Comme nts NA (test code = 4320518483) 133 mmol/L 135-145 L K (test code = 6819999819) 3.8 mmol/L 3.5-5 CL (test code = 3420456244) 95 mmol/L 98-108 L CO2 TOTAL (test code = 1629235124) 26 mmol/L 23-31 AGAP (test code = 8419970914) 2-16 BUN (test code = 1607736661) 15 mg/dL 7-23 GLUCOSE (test code = 9947282780) 293 mg/dL 70-110 H CREATININE (test code = 3908017959) 0.43 mg/dL 0.5-1.04 L TOTAL BILI (test code = 6376827403) 0.8 mg/dL 0.1-1.1 CALCIUM (test code = 7416898436) 9.1 mg/dL 8.6-10.6 T PROTEIN (test code = 9959549678) 7.4 g/dL 6.3-8.2 ALBUMIN (test code = 4336312102) 3.7 g/dL 3.5-5 ALK PHOS (test code = 2582568310) 95 U/L 34-122 ALTv (test code = 1742-6) 51 U/L 5-35 H AST(SGOT) (test code = 1452021645) 31 U/L 13-40 eGFR Calculation (Non-) (test code = 1781540861) mL/min/1.73m2 eGFR Calculation () (test code = 9355132301) mL/min/1.73m2 MIGUE (test code = MIGUE) Association of Glomerular Filtration Rate (GFR) and Staging of Kidney Disease* + --+ --+ ------+| GFR (mL/min/1.73 m2) ?| With Kidney Damage ?| ?Without Kidney Damage+ --------+ --------+ +| ?>90 ?| ?Stage one ?| ? Normal ?+ ---+ ---+ -------+| ?60-89 ?| ?Stage two ?| ? Decreased GFR ? + --+ --+ ------+| ?30-59 ?| ?Stage three ?| ? Stage three ? + --+ --+ ------+| ?15-29 ?| ?Stage four ? | ? Stage four ?+ ---+ ---+ -------+| ?<15 (or dialysis) ? ?| ?Stage five ? | ? Stage five ?+ ---+ ---+ -------+ *Each stage assumes the associated GFR level has been in effect for at least three months. ?Stages 1 to 5, with or without kidney disease, indicate chronic kidney disease. Notes: Determination of stages one and two (with eGFR >59mL/min/1.73 m2) requires estimation of kidney damage for at least three months as defined by structural or functional abnormalities of the kidney, manifested by either:Pathological abnormalities or Markers of kidney damage (including abnormalities in the composition of the blood or urine or abnormalities in imaging tests). Lab Interpretation (test code = 76113-2) Abnormal [facility] WITH [id number] 18:06:00* Test Item Value Reference Range Interpretation Comme nts WBC (test code = 6690-2) See_Comment [Automated StatsMixa ge] The system which generated this result transmitted reference range: 4.30 - 11.10 10*3/?L. The reference range was not used to interpret this result as normal/abnormal. RBC (test code = 789-8) See_Comment [Automated StatsMixa ge] The system which generated this result transmitted reference range: 3.93 - 5.25 10*6/?L. The reference range was not used to interpret this result as normal/abnormal. HGB (test code = 718-7) 13.5 g/dL 11.6-15 HCT (test code = 4544-3) 38.0 % 35.7-45.2 MCV (test code = 787-2) 84.8 fL 80.6-95.5 MCH (test code = 785-6) 30.1 pg 25.9-32.8 MCHC (test code = 786-4) 35.5 g/dL 31.6-35.1 H RDW-SD (test code = 15943-3) 37.6 fL 39-49.9 L RDW-CV (test code = 788-0) 12.3 % 12-15.5 PLT (test code = 777-3) See_Comment [Automated StatsMixa ge] The system which generated this result transmitted reference range: 166 - 358 10*3/?L. The reference range was not used to interpret this result as normal/abnormal. MPV (test code = 58017-4) 9.1 fL 9.5-12.9 L NRBC/100 WBC (test code = 2982021978) See_Comment [Automated Factyle ssage] The system which generated this result transmitted reference range: 0.0 - 10.0 /100 WBCs. The reference range was not used to interpret this result as normal/abnormal. NRBC x10^3 (test code = 7483678044) <0.01 See_Comment [Automated StatsMixa ge] The system which generated this result transmitted reference range: 10*3/?L. The reference range was not used to interpret this result as normal/abnormal. GRAN MAT (NEUT) % (test code = 770-8) 83.1 % IMM GRAN % (test code = 9372165321) 1.10 % LYMPH % (test code = 736-9) 10.7 % MONO % (test code = 5905-5) 4.8 % EOS % (test code = 713-8) 0.0 % BASO % (test code = 706-2) 0.3 % GRAN MAT x10^3(ANC) (test code = 4521150080) 8.90 10*3/uL 1.88-7.09 H IMM GRAN x10^3 (test code = 8903635165) 0.12 10*3/uL 0-0.06 H LYMPH x10^3 (test code = 731-0) 1.15 10*3/uL 1.32-3.29 L MONO x10^3 (test code = 742-7) 0.51 10*3/uL 0.33-0.92 EOS x10^3 (test code = 711-2) <0.03 0.03-0.39 L BASO x10^3 (test code = 704-7) 0.03 10*3/uL 0.01-0.07 Lab Interpretation (test code = 72308-7) Abnormal [facility] CenterLactic Acid Whole [id number] 17:55:00* Test Item Value Reference Range Interpretation Comme nts LACTIC ACID (test code = 2166999870) 1.35 mmol/L [facility] CenterXR CHEST 1 [id number] 17:53:23HISTORY: SOB. TECHNIQUE: Portable AP view of the chest is obtained. Comparison made with08/25/2020 study. FINDINGS: Patchy bilateral infiltrates noted with atelectatic changes inboth lungs, reducing the volume of lung on both sides.Cardiac size is upper normal. No pneumothorax or pleural effusion. C ONCLUSIONS: Bilateral pulmonary infiltrates and atelectatic changes.Findings are suggestive of atypical pulmonary infection including [id number]-felb pulmonary infection. Please correlate.[facility], Radiant Results Inft User - 08/29/2020 12:54 PM CDTHISTORY: SOB.TECHNIQUE: Portable AP view of the chest is obtained. Comparison made with08/25/2020 study.FINDINGS: Patchy bilateral infiltrates noted with atelectatic changes inboth lungs, reducing the volume of lung on both sides.Cardiac size is upper normal. No pneumothorax or pleural effusion. CONCLUSIONS: Bilateral pulmonary infiltrates and atelectaticchanges.Findings are suggestive of atypical pulmonary infection including [id number] pulmonary inf ection. Please correlate.[facility] CenterTroponin [id number] 01:46:00* Test Item Value Reference Range Interpretation Comme [facility] TROPONIN I (test code = 4458348940) <0.012 See_Comment [Automated message] The system which generated this result transmitted reference range: <=0.034 ng/mL. The reference range was not used to interpret this result as normal/abnormal. MIGUE (test code = MIGUE) Equal or Less than 0.034 ng/ml---Normal ?Note: Cardiac troponin begins to rise 3-4 hours after the onset of ischemia. Repeat in 4-6 hours if the sample was drawn within 3-4 hours of the onset of the symptom and found normal. Between 0.035 and 0.120 ng/mL--- Borderline. Questionable myocardial injury or necrosis ? ?Note: Serial measurement may be necessary to confirm or exclude the diagnosis of myocardial injury or necrosis; Clinical correlation (symptoms, EKGs, imaging studies, and others) required; Repeat in 4-6 hours if clinically indicated. ? Equal or Higher than 0.121 ng/mL---Abnormal. Myocardial Injury or Necrosis Likely ? Biotin has been reported to cause a negative bias, interpret results relative to patient's use of biotin. ? Lab Interpretation (test code = 55385-7) Normal [facility] CenterPO[facility]UCOSE (AUTOMATED)2020-08-26 01:42:00* Test Item Value Reference Range Interpretation Comme [facility] POCT GLU (test code = 7337817733) 294 mg/dL 70-110 H Lab Interpretation (test cod e = 63826-9) Abnormal [facility] CenterBasi Metabolic Panel (NA, K, CL, CO2, GLUCOSE, BUN, CREATININE, CA)2020-08-26 01:35:00* Test Item Value Reference Range Interpretation Comme nts NA (test code = 5018970334) 134 mmol/L 135-145 L K (test code = 8611700817) 3.9 mmol/L 3.5-5 CL (test code = 7434999061) 97 mmol/L 98-108 L CO2 TOTAL (test code = 6957388527) 25 mmol/L 23-31 AGAP (test code = 5390301153) 2-16 BUN (test code = 8903105936) 7 mg/dL 7-23 GLUCOSE (test code = 3463591088) 329 mg/dL 70-110 H CREATININE (test code = 4564473252) 0.44 mg/dL 0.5-1.04 L CALCIUM (test code = 3859799763) 9.6 mg/dL 8.6-10.6 eGFR Calculation (Non-) (test code = 8715944670) mL/min/1.73m2 eGFR Calculation () (test code = 4467725607) mL/min/1.73m2 MIGUE (test code = MIGUE) Association of Glomerular Filtration Rate (GFR) and Staging of Kidney Disease* + --+ --+ ------+| GFR (mL/min/1.73 m2) ?| With Kidney Damage ?| ?Without Kidney Damage+ --------+ --------+ +| ?>90 ?| ?Stage one ?| ? Normal ?+ ---+ ---+ -------+| ?60-89 ?| ?Stage two ?| ? Decreased GFR ? + --+ --+ ------+| ?30-59 ?| ?Stage three ?| ? Stage three ? + --+ --+ ------+| ?15-29 ?| ?Stage four ? | ? Stage four ?+ ---+ ---+ -------+| ?<15 (or dialysis) ? ?| ?Stage five ? | ? Stage five ?+ ---+ ---+ -------+ *Each stage assumes the associated GFR level has been in effect for at least three months. ?Stages 1 to 5, with or without kidney disease, indicate chronic kidney disease. Notes: Determination of stages one and two (with eGFR >59mL/min/1.73 m2) requires estimation of kidney damage for at least three months as defined by structural or functional abnormalities of the kidney, manifested by either:Pathological abnormalities or Markers of kidney damage (including abnormalities in the composition of the blood or urine or abnormalities in imaging tests). Lab Interpretation (test code = 37332-1) Abnormal [facility] with [id number] 01:21:00* Test Item Value Reference Range Interpretation Comme nts WBC (test code = 6690-2) See_Comment [Automated [employer] Software] The system which generated this result transmitted reference range: 4.30 - 11.10 10*3/?L. The reference range was not used to interpret this result as normal/abnormal. RBC (test code = 789-8) See_Comment [Automated [employer]] The system which generated this result transmitted reference range: 3.93 - 5.25 10*6/?L. The reference range was not used to interpret this result as normal/abnormal. HGB (test code = 718-7) 15.4 g/dL 11.6-15 H HCT (test code = 4544-3) 44.0 % 35.7-45.2 MCV (test code = 787-2) 84.6 fL 80.6-95.5 MCH (test code = 785-6) 29.6 pg 25.9-32.8 MCHC (test code = 786-4) 35.0 g/dL 31.6-35.1 RDW-SD (test code = 89254-4) 37.9 fL 39-49.9 L RDW-CV (test code = 788-0) 12.4 % 12-15.5 PLT (test code = 777-3) See_Comment [Automated [employer]] The system which generated this result transmitted reference range: 166 - 358 10*3/?L. The reference range was not used to interpret this result as normal/abnormal. MPV (test code = 99666-2) 10.1 fL 9.5-12.9 NRBC/100 WBC (test code = 2796280785) See_Comment [Automated [employer] ssage] The system which generated this result transmitted reference range: 0.0 - 10.0 /100 WBCs. The reference range was not used to interpret this result as normal/abnormal. NRBC x10^3 (test code = 6793976639) <0.01 See_Comment [Automated [employer] ge] The system which generated this result transmitted reference range: 10*3/?L. The reference range was not used to interpret this result as normal/abnormal. GRAN MAT (NEUT) % (test code = 770-8) 59.0 % IMM GRAN % (test code = 4295229543) 0.50 % LYMPH % (test code = 736-9) 34.5 % MONO % (test code = 5905-5) 5.5 % EOS % (test code = 713-8) 0.2 % BASO % (test code = 706-2) 0.3 % GRAN MAT x10^3(ANC) (test code = 6059107633) 3.63 10*3/uL 1.88-7.09 IMM GRAN x10^3 (test code = 6221405594) 0.03 10*3/uL 0-0.06 LYMPH x10^3 (test code = 731-0) 2.12 10*3/uL 1.32-3.29 MONO x10^3 (test code = 742-7) 0.34 10*3/uL 0.33-0.92 EOS x10^3 (test code = 711-2) <0.03 0.03-0.39 L BASO x10^3 (test code = 704-7) <0.03 0.01-0.07 Lab Interpretation (test code = 56894-4) [facility] [id number] 01:09:561. Lungs are expanded with very fine lower lung zone opacities, maycorrespond to atypical pneumonia. Disclaimer: Generally, the findings on chest imaging in COVID-19 are notspecific, and overlap withother infections, including influenza, H1N1,SARS and MERS.According to the Centers for Disease Control (CDC) and the [employer], viral testing remains the only specific method of rosio gnosiseven if CXR or CT findings are suggestive of COVID-19. PROCEDURE: CHEST XRAY , CLINICAL INDICATION: COVID +, eval for PNA COMPARISON: None FINDINGS: Lungs: Lungs are expanded with normal volumes. Very fine peripheral lowerlobe opacities may correspond to ground glass densities associated withatypical pneumonia. No distinct infiltrate or consolidation. Pleura: No pleural effusion or pneumothorax is seen. The heart is normal insize. No acute bony abnormality. [facility], Radiant Results Inft User- 08/25/2020 8:11 PM CDTPROCEDURE: CHEST XRAY , CLINICAL INDICATION: COVID +, eval for PNA COMPARISON: NoneFINDINGS:Lungs: Lungs are expanded with normal volumes. Very fine peripheral lowerlobe opacities may correspond to ground glass densities associated withatypical pneumonia.No distinct infiltrate or consolidation.Pleura: No pleural effusion or pneumothorax is seen. The heart is normal insize.No acute bony abnormality.IMPRESSION1. Lungs are expanded with very fine lower lung zone opacities, maycorrespond to atypical pneumonia.Disclaimer: Generally, the findings on chest imaging in COVID-19are notspecific, and overlap with other infections, including influenza, H1N1,SARS and MERS.According to the Centers for Disease Control (CDC) and the [employer], viral testing remains the only specific method of diagnosiseven if CXR or CT findings are suggestive of COVID-19.[facility] Center[facility] AND [id number] 22:11:00* Test Item Value Reference Range Interpretation Comme nts UA Nitrite (test code = UA Nitrite) Negative (11/22/16 4:11 PM) UA Blood (test code = UA Blood) Large *ABN*(11/22/16 4:11 PM) UA Urobilinogen (test code = UA Urobilinogen) 0.2 0.1-1.0 UA Leuk Est (test code = UA Leuk Est) Negative (11/22/16 4:11 PM) UA WBC (test code = UA WBC) 0-2 /HPF UA Sq Epi (test code = UA Sq Epi) See Note (11/22/16 4:11 PM) UA RBC (test code = UA RBC) Packed *ABN*(11/22/16 4:11 PM) <=2 UA Bacteria (test code = UA Bacteria) None Seen (11/22/16 4:11 PM) UA Turbidity (test code = UA Turbidity) Turbid *ABN*(11/22/16 4:11 PM) UA Spec Grav (test code = UA Spec Grav) >=1.030 *ABN*(11/22/16 4:11 PM) UA Color (test code = UA Color) Red *ABN*(11/22/16 4:11 PM) UA Ketones (test code = UA Ketones) Negative *NA*(11/22/16 4:11 PM) UA pH (test code = UA pH) 6.0 1 5.0-8.0 UA Protein (test code = UA Protein) 100 mg/dL UA Glucose (test code = UA Glucose) Negative (11/22/16 4:11 PM) UA Bili (test code = UA Bili) Negative *NA*(11/22/16 4:11 PM) [facility] [id number] 22:11:00* Test Item Value Reference Range Interpretation Comme [facility] U Preg (test code = U Preg) Negative (11/22/16 4:11 PM) [id number] 22:00:00* Test Item Value Reference Range Interpretation Comme [facility] AGAP (test code = AGAP) 12.9 10.0-20.0 eGFR (test code = eGFR) 114 BUN (test code = BUN) 9 7-22 Creatinine Lvl (test code = Creatinine Lvl) 0.64 0.50-1.40 Glucose Lvl (test code = Glucose Lvl) 114 70-99 Sodium Lvl (test code = Sodium Lvl) 142 135-145 Chloride Lvl (test code = Chloride Lvl) 105 95-109 Potassium Lvl (test code = P otassium Lvl) 3.9 3.5-5.1 CO2 (test code = CO2) 28 24-32 Calcium Lvl (test code = Calcium Lvl) 8.8 8.5-10.5 [id number] 22:00:00* Test Item Value Reference Range Interpretation Comme [facility] PROTIME (test code = PROTIME) 12.5 s 12.0-14.7 INR (test code = INR) 0.91 0.85-1.17 MPV (test code = MPV) 7.2 7.4-10.4 Platelet (test code = Platelet) 269 133-450 WBC X 10x3 (test code = WBC X 10x3) 5.9 3.7-10.4 RBC X 10x6 (test code = RBC X 10x6) 4.55 4.20-5.40 MCH (test code = MCH) 29.0 pg 27.0-31.0 MCV (test code = MCV) 84.4 80.0-98.0 Hgb (test code = Hgb) 13.2 12.0-16.0 Hct (test code = Hct) 38.4 36.0-48.0 RDW (test code = RDW) 14.2 11.5-14.5 MCHC (test code = MCHC) 34.4 32.0-36.0 aPTT (test code = aPTT) 26.4 s 22.9-35.8 Eosinophils # (test code = Eosinophils #) 0.2 <=0.5 Basophils # (test code = Basophils #) 0.1 <=0.2 Segs (test code = Segs) 51.5 45.0-75.0 Lymphocytes (test code = Lymphocytes) 36.2 20.0-40.0 Segs-Bands # (test code = Se gs-Bands #) 3.1 1.5-8.1 Lymphocytes # (test code = Lymphocytes #) 2.2 1.0-5.5 Monocytes # (test code = Monocytes #) 0.5 <=0.8 Basophils (test code = Basophils) 1.1 <=1.0 Eosinophils (test code = Eosinophils) 3.1 <=4.0 Monocytes (test code = Monocytes) 8.1 2.0-12.0 [facility] Notes Date/Time Note Provider Source 2024-05-17 10:50:05 Chief Complaint Patient presents with Leg Injury Left leg tib fib fx 4 days ago. Sheila Cardona LVN [facility] 2024-05-14 13:05:13 Patient DC home. Follow up with ortho. Verbalized understanding. Signed paper work. Otoniel Myles RN [facility] 2024-05-14 13:04:32 Placed patient in boot and given crutches with crutch training. [facility] 2024-05-14 11:07:37 Patient arrived in wheelchair with son c/o of left lower leg pain after a fall out of a chcair. Patient denies any LOC. Denies hitting head. Denies any blood thinners. Swelling and pain in triage. Kamala Stearns RN [facility] 2024-03-16 13:50:07 Chief Complaint Patient presents with Physical Patient is not fasting Referral Referral for right cataract surgery to [facility]. Kimberly Hurst MA II [facility]
[2025-03-16] MEDS ORDERED: ONDANSETRON 4 MG/2 ML VIAL ONE (22:13)
[2025-03-16] MEDS ORDERED: MORPHINE 4 MG/ML SYR ONE ×2 (22:13→23:49)
[2025-03-16] MEDS ORDERED: NA CHLORIDE 0.9% 1,000 ML ONE (22:14)
[2025-03-16 22:47] LABS: Albumin 3.4 g/dL (3.4-5.0); Anion Gap 8.8 mEq/L (5.0-15.0); Bilirubin Total 0.2 mg/dL (0.2-1.0); Globulin 3.3 g/dL (2.3-3.5); Potassium 3.8 mEq/L (3.5-5.1); Protein, Total 6.7 g/dL (6.4-8.2)
[2025-03-16 22:50] LABS: Absolute Eosinophils 0.2 K/uL (0-0.5); Absolute Lymphocytes (CBC) 1.8 K/uL (0.7-4.9); Absolute Monocytes 0.6 K/uL (0.1-1.3); Basophils % 0.5 % (0-1.3); Hematocrit 38.3 % (36.0-45.0); Hemoglobin 13.4 g/dL (12.0-15.0); Lymphocytes % 27.6 % (15.3-44.8); MCH 30.3 pg (27.0-35.0); MCV 86.5 fL (80-100); Monocytes % 8.8 % (3.3-12.3); Neutrophils % 60.1 % (41.7-73.7); Nucleated Red Blood Cells % 0.1 % (0-0); Platelets 175 thou/uL (152-406); RBC Red Blood Cell Count 4.43 M/uL (3.86-4.86); Red Cell Distribution Width 13.3 % (12.1-15.2)
--- NOTE | 2025-03-17 00:59 | EDPHYS ---
Physician Documentation [facility] Name: Anika Karimi Age: 49 yrs Sex: Female : 1975 Arrival Date: 03/16/2025 Time: 21:21 Bed 6 Private MD: ED Physician Rajendra Patino HPI: 03/16 22:09 This 49 yrs old Female presents to ER via Ambulatory with complaints of sp3 Abdominal Pain. 22:09 49-year-old female with history of diabetes, prior uterine cancer status post sp3 hysterectomy, hyperlipidemia now presents to the ED with chief complaint vomiting and diarrhea over the last 4 days which is progressively getting worse. She states anything she takes p.o. "immediately comes out the other end. She also has abdominal cramping. No blood or mucus noted in her emesis or stool. is also "starting to get ill". Patient denies fever, headache, chest pain, shortness of breath, back pain, symptoms, syncope, or any other signs or symptoms on ROS at this time.. 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 - Infectious Disease History:: Denies. - Social history:: Smoking status: Patient denies any tobacco usage or history of. Patient/guardian denies using alcohol, street drugs. ROS: 22:10 Constitutional: Negative for fever, chills, and weight loss, Eyes: Negative for injury, sp3 pain, redness, and discharge, ENT: Negative for injury, pain, and discharge, Neck: Negative for injury, pain, and swelling, Cardiovascular: Negative for chest pain, palpitations, and edema, Respiratory: Negative for shortness of breath, cough, wheezing, and pleuritic chest pain, Back: Negative for injury and pain, MS/Extremity: Negative for injury and deformity, Skin: Negative for injury, rash, and discoloration, Neuro: Negative for headache, weakness, numbness, tingling, and seizure, Psych: Negative for depression, anxiety, suicide ideation, homicidal ideation, and hallucinations, Allergy/Immunology: Negative for hives, rash, and allergies, Endocrine: Negative for neck swelling, polydipsia, polyuria, polyphagia, and marked weight changes, 22:10 All other systems are negative, Exam: 22:10 Constitutional: This is a well developed, well nourished patient who is awake, alert, sp3 and in no acute distress. Head/Face: Normocephalic, atraumatic. Eyes: Pupils equal round and reactive to light, extra-ocular motions intact. Lids and lashes normal. Conjunctiva and sclera are non-icteric and not injected. Cornea within normal limits. Periorbital areas with no swelling, redness, or edema. ENT: Nares patent. No nasal discharge, no septal abnormalities noted. External auditory canals are clear. Oropharynx with no redness, swelling, or masses, exudates, or evidence of obstruction, uvula midline. Mucous membranes moist. Neck: Trachea midline, no thyromegaly or masses palpated, and no cervical lymphadenopathy. Supple, full range of motion without nuchal rigidity, or vertebral point tenderness. No Meningismus. Chest/axilla: Normal chest wall appearance and motion. Nontender with no deformity. No lesions are appreciated. Cardiovascular: Regular rate and rhythm with a normal S1 and S2. No gallops, murmurs, or rubs. Normal PMI, no JVD. No pulse deficits. Respiratory: Lungs have equal breath sounds bilaterally, clear to auscultation and percussion. No rales, rhonchi or wheezes noted. No increased work of breathing, no retractions or nasal flaring. Back: No spinal tenderness. No costovertebral tenderness. Full range of motion. Skin: Warm, dry with normal turgor. Normal color with no rashes, no lesions, and no evidence of cellulitis. MS/ Extremity: Pulses equal, no cyanosis. Neurovascular intact. Full, normal range of motion. Neuro: Awake and alert, GCS 15, oriented to person, place, time, and situation. Cranial nerves II-XII grossly intact. Motor strength 5/5 in all extremities. Sensory grossly intact. Cerebellar exam normal. Normal gait. Psych: Awake, alert, with orientation to person, place and time. Behavior, mood, and affect are within normal limits. 22:10 Abdomen/GI: Diffuse tenderness upper quadrants bilaterally without peritoneal signs, rebound or guarding., Vital Signs: 21:33 BP 137 / 88; Pulse 88; Resp 16 S; Temp 97.8(O); Pulse Ox 100% on R/A; Weight 84.37 kg lg3 (R); Height 5 ft. 0 in. (R); Pain 8/10; 22:45 BP 123 / 82; Pulse 79; Resp 17 S; Pulse Ox 100% on R/A; ha1 23:45 BP 121 / 81; Pulse 73; Resp 18 S; Pulse Ox 100% on R/A; ha1 03/17 00:30 BP 120 / 74; Pulse 73; Resp 17 S; Pulse Ox 99% on R/A; ha1 01:10 BP 115 / 69; Pulse 73; Resp 17 S; Pulse Ox 98% on R/A; ha1 03/16 21:33 Body Mass Index 36.33 (84.37 kg, 152.4 cm) lg3 03/16 21:33 Pain Scale: Adult lg3 MDM: 03/16 21:36 Medical Screening Exam initiated sp3 22:13 Data reviewed: vital signs, nurses notes, lab test result(s), radiologic studies. ED sp3 course: 49-year-old female with gastroenteritis, vomiting, diarrhea and abdominal pain. Differential diagnosis includes viral illness, foodborne illness, other inflammatory process, irritable bowel, surgical abdomen, among others. Workup include CT scan of the abdomen pelvis with IV contrast, general labs and supportive care with IV fluids, pain and nausea medication. Disposition pending workup and patient course.. 03/17 00:57 ED course: CT negative and labs are normal. Given length of symptoms, we will go ahead sp3 and place on prophylactic antibiotics as well as ondansetron.. 03/16 21:58 Order name: CBC with Diff; Complete Time: 23:00 sp3 03/16 21:58 Order name: CMP; Complete Time: 23:00 sp3 03/16 21:58 Order name: Lipase; Complete Time: 23:00 sp3 03/16 21:58 Order name: CT Abd/Pelvis - IV Contrast Only sp3 03/16 21:58 Order name: IV Saline Lock; Complete Time: 21:59 sp3 03/16 21:58 Order name: Labs collected and sent; Complete Time: 21:59 sp3 Administered Medications: 03/16 22:21 Drug: Ondansetron IVP 4 mg IVP once; over 2 minutes Route: IVP; Site: right antecubital;cp4 22:50 Follow up: Response: No adverse reaction; Marked relief of symptoms ha1 22:21 Drug: NS 0.9% IV 1000 ml IV at 1 bolus Per protocol; to be given as a bolus over 60 cp4 minutes Route: IV; Rate: 1 bolus; Site: right antecubital; 03/17 01:12 Follow up: Response: No adverse reaction; IV Status: Completed infusion ha1 03/16 23:53 Drug: morphine IVP or IV 4 mg IVP once over 4 mins Route: IVP; Infused Over: 4 mins; ha1 Site: right antecubital; 03/17 00:10 Follow up: Response: No adverse reaction; Pain is decreased; RASS: Alert and Calm (0) ha1 Disposition Summary: 03/17/25 00:58 Discharge Ordered Notes: Location: Home sp3 Condition: Stable sp3 Diagnosis - Gastroenteritis, dehydration, vomiting sp3 Followup: sp3 - With: Private Physician - When: Upon discharge from the Emergency Department - Reason: Continuance of care Discharge Instructions: - Discharge Summary Sheet sp3 - Diarrhea, Adult sp3 Forms: - Medication Reconciliation Form sp3 - Antibiotic Education sp3 - Prescription Opioid Use sp3 - Patient Portal Instructions sp3 - Leadership Thank You Letter sp3 - Work release form cp4 Prescriptions: - Cipro 250 mg Oral Tablet - take 1 tablet ORAL route every 12 hours for 10 days; 20 tablet; Refills: 0, sp3 Product Selection Permitted - Flagyl 500 mg Oral Tablet - take 1 tablet ORAL route every 12 hours for 7 days; 14 tablet; Refills: 0, sp3 Product Selection Permitted - ondansetron 8 mg Oral Tablet,disintegrating - take 1 tablet ORAL route every 12 hours; 20 tablet; Refills: 0, Product sp3 Selection Permitted Signatures: Dispatcher [employer] Dennise Hensley RN RN lg3 Rajendra Patino MD MD sp3 Dominique Lema RN RN ha1 Tiesha Sanchez cp4 Corrections: (The following items were deleted from the chart) 03/16 21:40 21:36 PMHx: Diabetes mellitus; lg3 lg3 21:59 21:59 Abdomen Pelvis W Con+CT.RAD.BRZ ordered. EDMS EDMS 22:14 21:59 Test, Urine+UC.LAB.BRZ ordered. EDMS EDMS
--- NOTE | 2025-03-17 00:59 | ER ---
Nurse's Notes [facility] Name: Anika Karimi Age: 49 yrs Sex: Female : 1975 Arrival Date: 03/16/2025 Time: 21:21 Bed 6 Private MD: Diagnosis: Gastroenteritis, dehydration, vomiting Presentation: 03/16 21:33 Chief complaint: Patient states: fever, diarrhea starting Wednesday. seen by PCP and lg3 started ABX on Wednesday. Diarrhea has not stopped and now i have right upper abdominal pain, nausea, vomiting and cold sweats. Coronavirus screen: Client denies travel out of the [place] in the last 14 days. At this time, the client does not indicate any symptoms associated with coronavirus-19. Ebola Screen: No symptoms or risks identified at this time. Initial Sepsis Screen: Does the patient meet any 2 criteria? No. Patient's initial sepsis screen is negative. Does the patient have a suspected source of infection? No. Patient's initial sepsis screen is negative. Risk Assessment: Do you want to hurt yourself or someone else? Patient reports no desire to harm self or others. Onset of symptoms is unknown. 21:33 Method Of Arrival: Ambulatory lg3 21:33 Acuity: HEDY 3 lg3 Triage Assessment: 21:36 General: Appears in no apparent distress. uncomfortable, Behavior is calm, cooperative. lg3 Pain: Complains of pain in epigastric area and right upper quadrant Also complains of nausea. EENT: No deficits noted. No signs and/or symptoms were reported regarding the EENT system. Neuro: No deficits noted. Piña Agitation-Sedation Scale (RASS): 0 - Alert and Calm Level of Consciousness is awake, alert, obeys commands, Oriented to person, place, time, situation. Cardiovascular: No deficits noted. Denies chest pain, shortness of breath, Capillary refill < 3 seconds Clubbing of nail beds is absent JVD is absent Patient's skin is warm and dry. Respiratory: No deficits noted. Airway is patent Respiratory effort is even, unlabored, Respiratory pattern is regular, symmetrical. GI: Abdomen is round non-distended, Reports lower abdominal pain, diarrhea, intolerance of fluids, intolerance of food, nausea, vomiting. : No signs and/or symptoms were reported regarding the genitourinary system. Derm: No deficits noted. No signs and/or symptoms reported regarding the dermatologic system. Skin is intact, is healthy with good turgor, Skin is dry, Skin is normal, Skin temperature is warm. Musculoskeletal: No deficits noted. No signs and/or symptoms reported regarding the musculoskeletal system. Circulation, motion, and sensation intact. Range of motion: intact in all extremities. 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 - Infectious Disease History:: Denies. - Social history:: Smoking status: Patient denies any tobacco usage or history of. Patient/guardian denies using alcohol, street drugs. Screenin:01 [facility] ED Fall Risk Assessment (Adult) History of falling in the last 3 months, ha1 including since admission No falls in past 3 months (0 pts) Confusion or Disorientation No (0 pts) Intoxicated or Sedated No (0 pts) Impaired Gait No (0 pts) Mobility Assist Device Used No (0 pt) Altered Elimination No (0 pt) Score/Fall Risk Level 0 - 2 = Low Risk Oriented to surroundings, Maintained a safe environment, Educated pt \T\ family on fall prevention, incl call for assistance when getting out of bed, Hourly rounding (assess needs \T\ fall precautionary measures) done. Abuse screen: Denies threats or abuse. Denies injuries from another. Nutritional screening: No deficits noted. Tuberculosis screening: No symptoms or risk factors identified. Assessment: 21:31 General: Appears uncomfortable, Behavior is calm, cooperative. Pain: Complains of pain ha1 in right upper quadrant and epigastric area Pain does not radiate. Pain currently is 8 out of 10 on a pain scale. Quality of pain is described as aching. Neuro: Level of Consciousness is awake, alert, obeys commands, Oriented to person, place, time, situation. Cardiovascular: Capillary refill < 3 seconds Patient's skin is warm and dry. Respiratory: Airway is patent Respiratory effort is even, unlabored, Respiratory pattern is regular, symmetrical. GI: Abdomen is round obese, Bowel sounds present X 4 quads. Abd is soft and non tender X 4 quads. Reports upper abdominal pain, rectal bleeding, bloody stool, nausea, vomiting. : No signs and/or symptoms were reported regarding the genitourinary system. Derm: Skin is healthy with good turgor, Skin is normal. Musculoskeletal: Circulation, motion, and sensation intact. Range of motion: intact in all extremities. 22:35 Reassessment: Patient and/or family updated on plan of care and expected duration. Pain ha1 level reassessed. Patient is alert, oriented x 3, equal unlabored respirations, skin warm/dry/pink. Patient states symptoms have improved. 23:45 Reassessment: Patient and/or family updated on plan of care and expected duration. Pain ha1 level reassessed. Patient is alert, oriented x 3, equal unlabored respirations, skin warm/dry/pink. PAIN 7/10. General:. 03/17 00:50 Reassessment: Patient and/or family updated on plan of care and expected duration. Pain ha1 level reassessed. Patient is alert, oriented x 3, equal unlabored respirations, skin warm/dry/pink. Vital Signs: 03/16 21:33 BP 137 / 88; Pulse 88; Resp 16 S; Temp 97.8(O); Pulse Ox 100% on R/A; Weight 84.37 kg lg3 (R); Height 5 ft. 0 in. (R); Pain 8/10; 22:45 BP 123 / 82; Pulse 79; Resp 17 S; Pulse Ox 100% on R/A; ha1 23:45 BP 121 / 81; Pulse 73; Resp 18 S; Pulse Ox 100% on R/A; ha1 03/17 00:30 BP 120 / 74; Pulse 73; Resp 17 S; Pulse Ox 99% on R/A; ha1 01:10 BP 115 / 69; Pulse 73; Resp 17 S; Pulse Ox 98% on R/A; ha1 03/16 21:33 Body Mass Index 36.33 (84.37 kg, 152.4 cm) lg3 03/16 21:33 Pain Scale: Adult lg3 ED Course: 03/16 21:29 Patient arrived in ED. gm2 21:31 Patient has correct armband on for positive identification. Bed in low position. Call ha1 light in reach. Side rails up X 1. Adult w/ patient. Provided Education on: PLAN OF CARE . 21:34 Rajendra Patino MD is Attending Physician. sp3 21:36 Triage completed. lg3 21:36 Arm band placed on right wrist. lg3 21:59 Dominique Lema, DARREN is Primary Nurse. ha1 22:01 Inserted saline lock: 20 gauge in right antecubital area, using aseptic technique. ha1 Blood collected. Flushed with 10 mL NS. 23:16 CT Abd/Pelvis - IV Contrast Only In Process Unspecified. EDMS 03/17 01:41 No provider procedures requiring assistance completed. IV discontinued, intact, ha1 bleeding controlled, No redness/swelling at site. Pressure dressing applied. Administered Medications: 03/16 22:21 Drug: Ondansetron IVP 4 mg IVP once; over 2 minutes Route: IVP; Site: right antecubital;cp4 22:50 Follow up: Response: No adverse reaction; Marked relief of symptoms ha1 22:21 Drug: NS 0.9% IV 1000 ml IV at 1 bolus Per protocol; to be given as a bolus over 60 cp4 minutes Route: IV; Rate: 1 bolus; Site: right antecubital; 03/17 01:12 Follow up: Response: No adverse reaction; IV Status: Completed infusion ha1 03/16 23:53 Drug: morphine IVP or IV 4 mg IVP once over 4 mins Route: IVP; Infused Over: 4 mins; ha1 Site: right antecubital; 03/17 00:10 Follow up: Response: No adverse reaction; Pain is decreased; RASS: Alert and Calm (0) ha1 Medication: 03/16 22:02 VIS not applicable for this client. ha1 Outcome: 03/17 00:58 Discharge ordered by . sp3 01:41 Discharged to home ambulatory, with family, ha1 01:41 Condition: stable 01:41 Discharge instructions given to patient, family, Instructed on discharge instructions, follow up and referral plans. medication usage, Demonstrated understanding of instructions, follow-up care, medications, Prescriptions given X 3, 01:42 Patient left the ED. ha1 Signatures: Dispatcher [employer] EDDennise Trinidad RN RN lg3 Rajendra Patino MD MD sp3 Dominique Lema RN RN ha1 Tiesha Sanchez cp4 Brianna Cope gm2 Corrections: (The following items were deleted from the chart) 03/16 21:40 21:36 PMHx: Diabetes mellitus; lg3 lg3
[2025-03-17 03:13] VITALS: TEMP 97.8
[2025-03-17 03:23] VITALS: BP 115/69; O2SAT 98
--- NOTE | 2025-03-17 04:16 | RAD REPORT ---
EXAM: CT Abdomen and Pelvis With Intravenous Contrast CLINICAL HISTORY: The patient is 49 years old and is Female; ABD PAIN TECHNIQUE: Axial computed tomography images of the abdomen and pelvis with intravenous contrast. Sagittal an d coronal reformatted images were created and reviewed. This CT exam was performed using one or more of the following dose reduction techniques: automated exposure control, adjustment of the mA a nd/or kV according to patient size, and/or use of iterative reconstruction technique. COMPARISON: No relevant prior studies available. FINDINGS: LUNG BASES: Unremarkable. No mass. No consolidation. ABDOMEN: LIVER: The liver is enlarged and fatty. GALLBLADDER AND BILE DUCTS: The gallbladder is minimally distended. No calcified gallstones are s een. PANCREAS: No ductal dilation. No mass. SPLEEN: Unremarkable. ADRENALS: Unremarkable. No mass. KIDNEYS AND URETERS: The kidneys enhance symmetrically. There is no hydronephrosis or hydroureter of either kidney. No obstructing calculus is seen. STOMACH AND BOWEL: The stomach is not well-distended. The small bowel is normal in caliber. Stool and air are noted throughout the colon. There is no mucosal thickening or evidence of obstruction. PELVIS: APPENDIX: The appendix is normal in caliber without surrounding inflammation. BLADDER: The bladder is minimally distended. REPRODUCTIVE: The patient is status post hysterectomy. Ovaries are not definitively seen. ABDOMEN and PELVIS: INTRAPERITONEAL SPACE: Unremarkable. No free air. No significant fluid collection. BONES/JOINTS: Bilateral pars defects are present at L5 with grade 1 anterolisthesis. Intervertebr al disc space narrowing with vacuum phenomenon at L4-L5 is noted. There is no acute fracture. SOFT TISSUES: Fat-containing umbilical hernia with punctate calcification is noted. VASCULATURE: Unremarkable. No abdominal aortic aneurysm. LYMPH NODES: Unremarkable. No enlarged lymph nodes. IMPRESSION: No acute findings on this contrasted CT of the abdomen and pelvis to explain the patient's symptoms . Electronically signed by: Cassidy Altman MD 03/17/2025 12:45 AM CDT Due to temporary technical issues with the PACS/[employer] reporting system, reports are being tyler d by the in-house radiologist without review as a courtesy to ensure prompt reporting the interpreting radiologist is fully responsible for the content of the report. Transcribed Date/Time: 03/17/2025 4:16 AM
== END 2025-03-17 01:42 | disposition home or self-care (01) ==
LOC: ER 21:21
DX: K52.9 Noninfective gastroenteritis and colitis, unspecified (principal); E86.0 Dehydration; E11.9 Type 2 diabetes mellitus without complications; Z85.42 Personal history of malignant neoplasm of other parts of uterus; Z90.710 Acquired absence of both cervix and uterus
CPT/HCPCS: 96361; 85025; 36415; 83690; 80053; 74177; 96375; 96374; 99284; Q9967; J2405; J7030